=== PATIENT | female | born 1960 | race Caucasian/White ===

== ENCOUNTER 2017-02-05 09:51 | Emergency (ER) | payer MEDICARE, MEDICAID ==
[~2017-02-05] VITALS: Ht 160 cm; Wt 89.8 kg
[~2017-02-05 09:51] MED LIST: ALBUTEROL SULF0.5 ML IH; ALBUTEROL0.09 MG/Ac IH; ALBUTEROL2.5 MG/NEB IN; ALBUTEROL200 PUFFS/ IH; AMITRIPTYLINE 225 MG PO; AMLODIPINE10 MG PO; AMLODIPINE5 M1 PO; ASPIRIN CHILDRE81 M1 PO; AUGMENTIN1 TA3 PO; BACLOFEN 10MG T10 MG PO; BACTRIM DS 8001 TAB PO; BUSPIRONE HCL15 MG PO; CELEXA20 MG PO; CIPRO 500MG TA500 MG PO; CPAP; CRESTOR10 MG PO; CYMBALTA60 MG PO; DARVOCET-N 1001 EACH PO; DELTASONE5 MG PO; DEPAKOTE ER500 MG PO; DIAZEPAM5 M1 PO; DIAZEPAM5 MG PO; DIOVAN HCT 12.51 TAB PO; DULCOLAX5 MG PO; DULOXETINE 30MG30 MG PO; DULOXETINE HYDR60 MG PO; DUONEB 3 MG/3 ML3 ML IH; ELAVIL GENERIC10 MG PO; ELAVIL GENERIC25 MG PO; ENDOCET 650 MG-1 TAB PO; ETODOLAC400 MG PO; FLEET ENEMA 13135 ML RC; FLEXERIL10 MG PO; GABAPENTIN 400400 MG PO; GABAPENTIN 600600 MG PO; KCL 10% 2020 MEQ/15 PO; LASIX20 MG PO; LASIX40 MG PO; LIPITOR20 MG PO; LISINOPRIL10 MG PO; LORTAB 5/500 501 TAB PO; LORTAB 500 MG-11 TAB PO; LORTAB 500 MG-71 TAB PO; MACROBID 100MG100 MG PO; MEDROL 4MG. DOSE4 MG PO; METOPROLOL SUCC50 M1 PO; MILK OF MA400 MG/51 PO; MINOCYCLINE 10100 MG PO; NAPROSYN 500MG500 MG PO; NAPROXEN SODIU500 MG PO; NEURONTIN600 M1 PO; NEURONTIN600 MG PO; NEURONTIN800 MG PO; NORCO 325 MG-51 TAB PO; ONDANSETRON 4MG4 M1 PO; PERCOCET 10 MG1 EACH PO; PERCOCET 325 MG1 TA3 PO; PERCOCET 5/3251 EACH PO; PHENERGAN 12.12.5 M1 PO; PHENERGAN 25MG.25 M1 PO; PHENERGAN 25MG.25 MG PR; PREDNISONE 10MG10 MG PO; PREDNISONE 20MG20 MG PO; PREVACID 30MG C30 M1 PO; PROMETHAZINE25 M1 PO; PROVENTIL0.09 MG/AC IH; PYRIDIUM 200MG200 MG PO; Prilosec20 MG PO; RANITIDINE HCL300 M1 PO; RESTORIL 15MG C15 MG PO; RESTORIL15 MG PO; ROBAXIN 500 MG500 MG PO; SOMA350 MG PO; SULFAMETHOXAZOL1 TA6 PO; TEMAZEPAM30 MG PO; TESSALON PERLE100 MG PO; TESSALON PERLE200 MG PO; TRAMADOL 50MG T50 MG PO; TRAZADONE HYDR100 MG PO; TRAZODONE100 MG PO; VALIUM 10MG TAB10 MG PO; VICODIN 5/500 T1 TAB PO; VISTARIL25 MG PO; VISTARIL50 MG PO; ZANAFLEX4 MG PO
[2017-02-05] MEDS ORDERED: LINZESS145 MCG PO (10:07)
[2017-02-05] MEDS ORDERED: TEMAZEPAM30 MG PO (10:07)
--- OUTSIDE RECORDS SUMMARY | 2017-02-05 10:11 | External Medical Summary Rpt ---
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 CONTRAST MATRL RADIOLOGI 96465 [facility] EXAM [facility] CHEST 2 INC INC VIEWS FRONTAL&L ATERAL SIMPLE 64737 [facility] REPAIR 6 [facility] SCALP/NEC INC INC K/AX/ASHLEY T/TRUNK 2.5CM/< [place] [address] [facility] HEAD/BRAI 6 [facility] N W/O INC INC CONTRAST MATERIAL BLOOD 91089 [facility] COUNT [facility] COMPLETE INC INC AUTO&AUTO DIFRNTL WBC COMPREHEN 43984 [facility] SIVE 6 [facility] METABOLIC INC INC PANEL IAADI 91294 [facility] INFLUENZA 6 [facility] B VIRUS INC INC IAADI 85895 [facility] INFFLUENZ 6 [facility] A A VIRUS INC INC ECG 25126 [facility] ROUTINE 6 [facility] ECG INC INC W/LEAST 12 LDS TRCG ONLY W/O I&R IAADI 95137 [facility]AUTUMN P[facility] INFLUENZA 6 [facility] B VIRUS INC INC NATRIURET 15089 [facility] IC 6 [facility] PEPTIDE INC INC CREATINE 20492 [facility] KINASE 6 [facility] TOTAL INC INC IAADI 45005 [facility] INFFLUENZ 6 [facility] A A VIRUS INC INC SEDIMENTA 23851 [facility] P[facility] TIAUTUMN RATE 6 [facility] RBC INC INC NON-AUTOM ATED FIBRIN 56120 [facility] DGRADJ 6 [facility] PRODUCTS INC INC D-DIMER QUAL/SEMI LENO COMPREHEN 97312 [facility] SIVE 6 [facility] METABOLIC INC INC PANEL CREATINE 32926 [facility] KINASE MB 6 [facility] FRACTION INC INC ONLY THERAPEUT 29599 [facility] IC 6 [facility] INJECTION INC INC IV PUSH EACH NEW DRUG C-REACTIV 28675 [facility] E PROTEIN 6 [facility] INC INC BLOOD 09486 [facility] COUNT 6 [facility] COMPLETE INC INC AUTO&AUTO DIFRNTL WBC ECG 18016 [facility] HUMPHREYS ROUTINE [address] [facility] W/LEAST P 12 LDS I&[place] [address] [facility] TROPONIN 6 [facility] QUANTITAT INC INC [place] RADIOLOGI 22497 [facility] C 6 [facility] EXAMINATI INC [place] [address] [facility] INFUSION 6 [facility] THERAPY/P INC INC ROPHYLAXI S /DX 1ST TO 1 HR PRESSURIZ 60165 [facility] ED/NONPRE 6 [facility] SSURIZED INC INC INHALATIO N TREATMENT RADIOLOGI 60764 [facility] C EXAM 6 [facility] CHEST 2 INC INC VIEWS FRONTAL&L ATERAL BLOOD 23739 [facility] COUNT 6 [facility] COMPLETE INC INC AUTO&[place] [address] [facility] TROPONIN 6 [facility] QUANTITAT INC INC [place] THERAPEUT 28820 [facility] P[facility] IC 6 [facility] INJECTION INC INC IV PUSH EACH NEW DRUG NATRIURET 10498 [facility] IC 6 [facility] PEPTIDE INC INC CREATINE 04278 [facility] KINASE MB 6 [facility] FRACTION INC INC ONLY COMPREHEN 87979 [facility] P[facility] SIVE 6 [facility] METABOLIC INC INC PANEL FIBRIN 88287 [facility] P[facility] DGRADJ 6 [facility] PRODUCTS INC INC D-DIMER QUAL/SEMI LENO CREATINE 71684 [facility] KINASE 6 [facility] TOTAL INC INC THER 48706 [facility] PROPH/DX 6 [facility] NJX IV INC INC PUSH SINGLE/1S T SBST/DRUG INJECTION J2405 [facility]K 6 [facility] ONDANSETR INC INC ON HCL PER 1 MG ECG 21302 [facility] ROUTINE 6 [facility] ECG INC INC W/LEAST 12 LDS TRCG ONLY W/O I&R COMPUTER- 23762 [facility] AIDED 6 [facility] DETECTION INC INC SCREENING MAMMOGRAP HY SCREENING G0202 [facility]K 6 [facility] MAMMOGRAP INC INC [place] [address] [facility] ABDOMINAL 6 [facility] REAL INC INC TIME W/IMAGE LIMITED BLOOD 32236 [facility] COUNT 6 [facility] COMPLETE INC INC AUTO&AUTO DIFRNTL WBC COLLECTIO 97168 [facility] [place] VENOUS 6 [facility] BLOOD INC INC VENIPUNCT URE PRESSURIZ 26281 [facility] ED/NONPRE 6 [facility] SSURIZED INC INC INHALATIO N TREATMENT NONINVASI 00573 [facility] VE 6 [facility] EAR/PULSE INC INC OXIMETRY SINGLE DETER BASIC 85660 [facility] [place] METABOLIC 6 [facility] PANEL INC INC CALCIUM TOTAL TX PROC G0238 [facility]AUTUMN P[facility] IMPRV 6 [facility] RESP INC INC FUNCT NOT G0237 [facility] G0378 [facility] OBSERVATI 6 [facility] ON INC INC SERVICE PER HOUR INJECTION J2405 [facility] PECK 6 [facility] ONDANSETR INC INC ON HCL PER 1 MG ECG 46713 [facility] ROUTINE 6 [facility] ECG INC INC W/LEAST 12 LDS TRCG ONLY W/O I&R INJECTION J2405 [facility] P[facility]K 6 [facility] ONDANSETR INC INC ON HCL PER 1 MG THER 33300 [facility] PROPH/DX 6 [facility] NJX IV INC INC PUSH SINGLE/1S T SBST/DRUG HOSPITAL G0378 [facility] OBSERVATI 6 [facility] ON INC INC SERVICE PER HOUR COMPREHEN 60204 [facility] SIVE 6 [facility] METABOLIC INC INC PANEL INJECTION J0330 [facility] PECK 6 [facility] SUCCINYLC INC INC HOLINE CHLORIDE UP TO 20 MG URNLS DIP 96691 [facility]K 6 [facility] STICK/TAB INC INC LET REAGENT AUTO MICROSCOP Y INJECTION J2710 [facility]K 6 [facility] NEOSTIGMI INC INC NE METHYLSUL FATE UP TO 0.5 MG INITIAL 27135 [facility] GERRY SORIANO OBSERVATI 6 PHYSICIAN ON S GROUP CARE/DAY 30 MINUTES PRESSURIZ 59017 [facility] ED/NONPRE 6 [facility] SSURIZED INC INC INHALATIO N TREATMENT LOCM Q9967 [facility] 300-399 6 [facility] MG/ML INC INC IODINE CONCENTRA TION PER ML LAPAROSCO 52505 [facility] PIC 6 [facility] [address] [facility] ABDOMEN & 6 [facility] PELVIS INC INC W/CONTRAS T MATERIAL BLOOD 68235 [facility] COUNT 6 [facility] COMPLETE INC INC AUTO&AUTO DIFRNTL WBC LEVEL III 96020 [facility] SURG 6 [facility] PATHOLOGY INC INC GROSS&LOPEZ ROSCOPIC EXAM GONADOTRO 52821 [facility] PIN 6 [facility] CHORIONIC INC INC QUALITATI VE BLOOD 03710 [facility] COUNT 5 [facility] COMPLETE INC INC AUTO&AUTO DIFRNTL WBC SYPHILIS 39765 [facility] TEST 5 [facility] NON-TREPO INC INC NEMAL ANTIBODY QUAL COLLECTIO 43008 [facility] N VENOUS 5 [facility] [place] [address] [facility] THYROID 5 [facility] STIMULATI INC INC NG HORMONE TSH LIPID 19932 [facility] P[facility] PANEL 5 [facility] INC INC HEMOGLOBI 11929 [facility] N 5 [facility] GLYCOSYLA INC INC TERESSA A1C COMPREHEN 11845 [facility] P[facility] SIVE 5 [facility] METABOLIC INC INC PANEL CYANOCOBA 06805 [facility] SONG 5 [facility] VITAMIN INC INC B-12 THERAPEUT 75484 [facility] IC 5 [facility] PROPHYLAC INC INC TIC/DX INJECTION SUBQ/IM RADEX 05196 [facility] SPINE 5 [facility] CERVICAL INC INC 2 OR 3 VIEWS BASIC 70002 [facility] METABOLIC 5 [facility] PANEL INC INC CALCIUM TOTAL BASIC 12413 [facility] P[facility] METABOLIC 5 [facility] PANEL INC INC CALCIUM TOTAL COLLECTIO 82642 [facility] N VENOUS 5 [facility] BLOOD INC INC VENIPUNCT URE SCREENING G0202 [facility]K 5 [facility] MAMMOGRAP INC INC HY ELIZABETH INCL CAD WHEN PERFORMD COMPUTER- 55183 [facility] AIDED 5 [facility] DETECTION INC INC SCREENING MAMMOGRAP HY URNLS DIP 15652 [facility]K 5 [facility] STICK/TAB INC [place] [address] [facility] INFUSION 5 [facility] THERAPY/P INC INC ROPHYLAXI S /DX 1ST TO 1 HR RADEX 76982 [facility] P[facility] SPINE 5 [facility] LUMBOSACR INC INC AL MINIMUM 4 VIEWS RADIOLOGI 80876 [facility] C 5 [facility] EXAMINATI INC INC ON PELVIS 1/2 VIEWS RADIOLOGI 19839 [facility] C 5 [facility] EXAMINATI INC INC ON FEMUR 2 VIEWS INJECTION J2405 [facility]K 5 [facility] ONDANSETR INC INC ON HCL PER 1 MG INJECTION J1040 [facility]K 5 [facility] METHYLPRE INC INC DNISOLONE ACETATE 80 MG THERAPEUT 60187 [facility] IC 5 [facility] PROPHYLAC INC INC TIC/DX INJECTION SUBQ/IM RADIOLOGI 75297 [facility] [place] EXAM 5 [facility] KNEE INC INC COMPLETE 4/MORE VIEWS RADEX 34133 [facility] SPINE 5 [facility] CERVICAL INC INC 4 OR 5 VIEWS NONINVASI 26464 [facility] VE 5 [facility] EAR/PULSE INC INC OXIMETRY SINGLE DETER PRESSURIZ 34559 [facility] ED/NONPRE 5 [facility] SSURIZED INC INC INHALATIO N TREATMENT HOSPITAL G0378 [facility] OBSERVATI 5 [facility] ON INC INC SERVICE PER HOUR HOSPITAL G0378 [facility] P[facility] OBSERVATI 5 [facility] ON INC INC SERVICE PER HOUR BASIC 59781 [facility] METABOLIC 5 [facility] PANEL INC INC CALCIUM TOTAL INJECTION J0456 [facility] PECK 5 [facility] AZITHROMY INC INC FRANCHESCA 500 MG PRESSURIZ 12263 [facility] ED/NONPRE 5 [facility] SSURIZED INC INC INHALATIO N TREATMENT NONINVASI 17626 [facility]K VE 5 [facility] EAR/PULSE INC INC OXIMETRY SINGLE DETER CUL BACT 26061 [facility] XCPT 5 [facility] URINE INC INC BLOOD/STO OL AEROBIC ISOL COLLECTIO 08610 [facility] [place] VENOUS 5 [facility] BLOOD INC INC VENIPUNCT URE SMR PRIM 59771 [facility] SRC 5 [facility] GRAM/GIEM INC INC SA STAIN BCT FUNGI/LUIS L BLOOD 76713 [facility] COUNT 5 [facility] COMPLETE INC INC AUTO&AUTO DIFRNTL WBC BLOOD 06702 [facility] COUNT 5 [facility] COMPLETE INC INC AUTO&AUTO DIFRNTL WBC ECG 90379 [facility] HUMPHREYS ROUTINE 5 [facility] W/LEAST P 12 LDS I&R ONLY CULTURE 86690 [facility] PECK BACTERIAL 5 [facility] BLOOD INC INC AEROBIC W/ID ISOLATES COLLECTIO 13729 [facility] [place] VENOUS 5 [facility] [place] [address] [facility] PECK TROPONIN 5 [facility] [address] [facility] PCEK INFUSION 5 [facility] THERAPY/P INC INC ROPHYLAXI S /DX 1ST TO 1 HR THERAPEUT 37922 [facility] PECK IC 5 [facility] INJECTION INC INC IV PUSH EACH NEW DRUG PRESSURIZ 24776 [facility] ED/NONPRE 5 [facility] SSURIZED INC INC INHALATIO N TREATMENT RADIOLOGI 18890 [facility] [place] EXAM 5 [facility] CHEST 2 INC INC VIEWS FRONTAL&L ATERAL INJECTION J0456 [facility]K 5 [facility] AZITHROMY INC INC FRANCHESCA 500 MG CREATINE 44074 [facility] KINASE 5 [facility] TOTAL INC INC ECG 28031 [facility] ROUTINE 5 [facility] ECG INC INC W/LEAST 12 LDS TRCG ONLY W/[place] I&[place] [address] [facility] INFUSION 5 [facility] THER INC INC PROPH ADDL SEQUENTIA L TO 1 HR [facility]OSPITAL G0378 [facility] OBSERVATI 5 [facility] ON INC INC SERVICE PER HOUR COMPREHEN 14123 [facility] SIVE 5 [facility] METABOLIC INC INC PANEL INJECTION J2405 [facility] PECK 5 [facility] ONDANSETR INC INC ON HCL PER 1 MG CREATINE 39765 [facility] KINASE MB 5 [facility] FRACTION INC INC ONLY APPL 59107 [facility] MODALITY 4 [facility] 1/> AREAS INC INC ELEC STIMJ EA 15 MIN URNLS DIP 91442 [facility]K 3 [facility] STICK/TAB INC INC LET REAGENT AUTO MICROSCOP Y THERAPEUT 00167 [facility] IC 3 [facility] PROPHYLAC INC INC TIC/DX INJECTION SUBQ/IM HEMOGLOBI 99045 [facility] N 3 [facility] GLYCOSYLA INC INC TERESSA A1C 3D 01495 [facility] RENDERING 3 [facility] W/INTERP INC INC & POSTPROCE SS SUPERVISI ON MRI 20605 [facility] SPINAL 3 [facility] CANAL INC INC LUMBAR W/O CONTRAST MATERIAL COLLECTIO 29359 [facility] [place] VENOUS 3 [facility] BLOOD INC INC VENIPUNCT URE ECHO 32312 [facility] TTHRC R-T 3 2D W/WO CONSULTIN M-MODE G SRV REST&STRS CONT ECG COLLECTIO 89851 [facility] [place] VENOUS 3 [facility] VENIPUNCT URE FIBRIN 26135 CHICA COTO DGRADJ 3 [facility] D-DIMER QUANTITAT [place] ECHO 21091 [facility] P[facility]K TTHRC R-T 3 [facility] 2D INC INC W/WOM-MOD E COMPL SPEC&COLR D SLEEP STD 02574 [facility] VNTJ 3 [facility] ECG/HRT RATE&O2 ATTN RADIOLOGI 35853 [facility] EX[facility] [address] VIEWS FRONTAL&L ATERAL XTRNL ECG 72543 [facility] BRET & 48 HR 3 MD RECORDING CONSULTIN G SRV ECG 82488 [facility] ROUTINE 3 MD ECG CONSULTIN W/LEAST G SRV 12 LDS W/I&R CYSTO 24876 [facility] GOME[facility] CALIBRATI 3 [place] [facility] ON DILAT ADULT & URTL PED STRIX/LORNA NOSIS DILATION 586 [facility] PECK OF 3 [facility] URETHRA INC INC INJECTION J2405 [facility]ECK 3 [facility] ONDANSETR INC INC ON HCL PER 1 MG DILAT 56902 ICSCO PECK FEMALE 3 [facility] URETHRA INC INC GENERAL/C NDJ SPINAL ANES CYSTOURET 07449 [facility] GOME[facility] HROSCOPY 3 [place] [facility] W/DIL ADULT & [place] [address] [facility] P[facility]K INFUSION 3 [facility] THERAPY INC INC PROPHYLAX IS/DX EA HOUR THERAPEUT 34361 [facility] PECK IC 3 [facility] INJECTION INC [place] [address] [facility] P[facility]K INFUSION 3 [facility] THERAPY/P INC INC ROPHYLAXI S /DX 1ST TO 1 HR COLLECTIO 42483 [facility]K N VENOUS 3 [facility] BLOOD INC INC VENIPUNCT URE BLOOD 15429 [facility] COUNT 3 [facility] COMPLETE INC INC AUTO&AUTO DIFRNTL WBC URNLS DIP 51799 [facility] PECK 3 [facility] STICK/TAB INC INC LET REAGENT AUTO MICROSCOP Y COMPREHEN 41030 [facility] SIVE 3 [facility] METABOLIC INC INC PANEL ECG 42754 [facility] ROUTINE 3 [facility] ECG INC INC W/LEAST 12 LDS TRCG ONLY W/O I&R THERAPEUT 76323 [facility]ICA COTO IC 3 [facility] PROPHYLAC [facility] TIC/DX INJECTION SUBQ/[place] [address] CHICA COTO LIPASE 3 [facility] COMPREHEN 19377 CHICA COTO SIVE 3 [facility] PANEL URNLS DIP 83466 CHICA [place] 3 [facility] STICK/TAB [facility] [place] [address] CHICA COTO ABDOMEN & [address] [place] [address] W/CONTRAS T MATERIAL BLOOD 98228 CHICA COTO COUNT 3 [facility] AUTO&[place] [address] CHICA COTO INFUSION 3 [facility] THERAPY/P [facility] ROPHYLAXI S /DX 1ST TO 1 HR THERAPEUT 62856 CHICA COTO IC 3 [facility] IV PUSH EACH NEW DRUG CULTURE 61471 CHICA COTO BACTERIAL [address] [place] [address] QUANTTATI VE COLONY COUNT URINE SMR PRIM 53318 [facility]ICA COTO SRC WET 3 [facility] NFCT AGT TISS ADI 68500 CHICA COTO SLIDE 3 [facility] SKN/HR/NL S FNGI/ECTO PARASIT RADIOLOGI 16121 [facility] COTO C EXAM 3 [facility]ST [address] [place] [address] VIEWS FRONTAL&L ATERAL PRESSURIZ 56339 [facility] COTO ED/NONPRE 3 [facility] INHALAT[facility] N TREATMENT NEEDLE 58587 FEMI JENNIFER EMG EA 3 JAL EXTREMTY NEUROSCIE W/PARASPI NCES CENT NL AREA COMPLETE NERVE 16239 FEMI HILLIO 3 JAL N STUDIES NEUROSCIE 7-8 [facility] CENT STUDIES STANDARD K0001 FELICIA GOREI 3 HOME HOME R MEDICAL MEDICAL EQUIPME EQUIPME FILTER A7039 FELICIA DUARTE NON 2 HOME HOME DISPBL MEDICAL MEDICAL USED EQUIPME EQUIPME W/POS ARWAY PRESS DEVICE FULL FACE A7030 FELICIA DUARTE MASK 2 HOME HOME USED MEDICAL MEDICAL W/POS EQUIPME EQUIPME ARWAY PRESS DEVICE EA THER 44478 [facility] PROPH/DX 2 [facility] NJX IV INC INC PUSH SINGLE/1S T SBST/DRUG 3D 59297 [facility] RENDERING 2 [facility] W/INTERP INC INC & [place] 3D 79074 [facility] RENDERING 2 [facility] INC INC W/INTERP& [place] [address] [facility] HEAD/BRAI 2 [facility] N W/[place] [address] [facility] CERVICAL 2 [facility] SPINE W/O INC INC CONTRAST MATERIAL MOE 85312 [facility] POST-VOID 2 [facility] RESIDUAL PED URINE&/BL ADDER CAP OTHER 5732 [place] CYSTOSCOP 2 [facility] OTHER 5979 [place] REPAIR OF 2 [facility] INCONTINE NYE ECG 32364 [place] ROUTINE 2 [facility] W/LEAST 12 LDS TRCG ONLY W/O I&R PRESSURIZ 20804 [place] ED/NONPRE 2 [facility] INHALATIO N TREATMENT SLING 51035 [place] OPERATION 2 [facility] INCONTINE NYE RADIOLOGI 34012 [facility] C 2 [facility] EXAMINATI INC INC ON FOOT 2 VIEWS RADEX 05428 [facility] CALCANEUS 2 [facility] MINIMUM INC INC 2 VIEWS FLUOR 71164 [facility] NEEDLE/CA 2 N N TH [facility] SPINE/PAR HOSPITA HOSPITA ASPINAL DX/THER ADDON NJX 63488 [facility] DX/THER 2 N N SBST [facility] EPIDURAL/ HOSPITA HOSPITA SUBARACH LUMBAR/SA CRAL INJECTION J2250 [facility] 2 N N MIDAZOLAM [facility] HCL PER HOSPITA HOSPITA 1 MG INJECTION 0392 [facility] OF OTHER 2 N N AGENT [facility] INTO HOSPITA HOSPITA SPINAL CANAL INJECTION 9923 [facility] OF 2 N N STEROID [facility] HOSPITA INJECTION J2001 [facility] 2 N N LIDOCAINE [facility] HCL [facility]ITA HOSPITA INTRAVENO US INFUS 10 MG INJECTION J1100 [facility] 2 N N DEXAMETHO [facility] SONE [facility] HOSPITA SODIUM PHOSPHATE 1 MG RADEX 87829 [facility] MAXINEAUTUMN SHOULDER 2 [facility] MINIMUM 2 VIEWS RADEX 56865 [facility] 2 [facility] [address] [place] [address] CHICA COTO HEAD/BRAI 2 [facility] CONTRAST MATERIAL RADIOLOGI 70100 [facility] C 2 [facility] EXAMINATI INC INC ON KNEE 3 VIEWS RADEX 18373 CH[facility] GOODMANAUTUM[facility] FOOT 2 [facility] MINIMUM 3 VIEWS THERAPEUT 01147 NAEEMILA COTO IC 2 [facility] TIC/DX INJECTION SUBQ/IM THERAPEUT 49233 [facility] IC 2 [facility] PROPHYLAC INC INC TIC/DX INJECTION SUBQ/IM TUBING A7037 FELICIA DUARTE USED WITH 2 HOME HOME POSITIVE MEDICAL MEDICAL AIRWAY EQUIPME EQUIPME PRESSURE DEVICE HEADGEAR A7035 FELICIA DUARTE USED 2 HOME HOME W/POSITIV MEDICAL MEDICAL E AIRWAY EQUIPME EQUIPME PRESSURE DEVICE FULL FACE A7030 FELICIA DUARTE MASK 2 HOME HOME USED MEDICAL MEDICAL W/POS EQUIPME EQUIPME ARWAY PRESS DEVICE EA FILTER A7038 FELICIA DUARTE DISPBL 2 HOME HOME USED MEDICAL MEDICAL W/POS EQUIPME EQUIPME ARWAY PRESSURE DEVICE RADEX 66248 [facility] ELBOW 2 [facility] INC INC MINIMUM 3 VIEWS PRESSURIZ 98069 [facility] ED/NONPRE 2 Y Y SSURIZED [facility] INHALATIO N TREATMENT PPSV23 85092 [facility] VACCINE 2 2 Y Y YRS OR HOSPITAL HOSPITAL OLDER FOR SUBQ/IM USE LAPS SURG 51734 [facility] 2 Y Y ESOPG/GST [facility] R FUNDOPLAS TY INJECTION J0330 [facility] 2 Y Y SUCCINYLC [facility] HOLINE CHLORIDE UP TO 20 MG INJECTION [id number] [facility] FENTANYL 2 Y Y CITRATE [facility] 0.1 MG INFUSION J7030 [facility] NORMAL 2 Y Y SALINE [facility] SOLUTION 1000 CC INTRDUCR/ [id number] [facility] SHEATH 2 Y Y NOT GUID [facility] INTRACARD EP NON-LASR RINGERS J7120 [facility] LACTATE 2 Y Y INFUSION [facility] UP TO 1000 CC INJECTION J1170 [facility] 2 Y Y HYDROMORP [facility] OFELIA UP TO 4 MG INJECTION J1644 [facility] HEPARIN 2 Y Y SODIUM [facility] PER 1000 UNITS INJECTION J2550 [facility] 2 Y Y PROMETHAZ [facility] INE HCL UP TO 50 MG LAP PROC 4467 [facility] CREAT 2 Y Y ESOPHAGOG [facility] ASTR SPHNCTRIC COMPETNCE TUBING A7037 FELICIA DUARTE USED WITH 2 HOME HOME POSITIVE MEDICAL MEDICAL AIRWAY EQUIPME EQUIPME PRESSURE DEVICE FULL FACE A7030 FELICIA DUARTE MASK 2 HOME HOME USED MEDICAL MEDICAL W/POS EQUIPME EQUIPME ARWAY PRESS DEVICE EA NEBULIZER E0570 FELICIA DUARTE WITH 2 HOME HOME COMPRESSO MEDICAL MEDICAL R EQUIPME EQUIPME WALKING L4386 FELICIA DUARTE BOOT 2 HOME HOME NON-PNEUM MEDICAL MEDICAL ATIC EQUIPME EQUIPME PREFAB CUSTOM FIT CONTINUOU E0601 FELICIA DUARTE S 2 HOME HOME POSITIVE MEDICAL MEDICAL AIRWAY EQUIPME EQUIPME PRESSURE DEVICE CT LOWER 03504 [facility] EXTREMITY [facility] W/O INC INC CONTRAST MATERIAL 3D 27250 [facility] RENDERING 2 [facility] INC INC W/INTERP& [place] [address] [facility] THYROXINE 2 [facility] [place] [address] [facility] BLOOD/URI 2 [facility] C ACID INC INC RHEUMATOI 24428 [facility] D FACTOR 2 [facility] [address] [facility] P[facility] THYROID 2 [facility] STIMULATI INC INC NG HORMONE TSH COLLECTIO 40347 [facility] N VENOUS 2 [facility] BLOOD INC INC VENIPUNCT URE BLOOD 35585 [facility] COUNT 2 [facility] COMPLETE INC INC AUTO&AUTO DIFRNTL WBC CYANOCOBA 78593 [facility] SONG 2 [facility] VITAMIN INC INC B-12 PROTEIN 54525 [facility] ELECTROPH 2 [facility] ORETIC INC INC FRACTJ&[place] [address] [facility] THIAMINE- 2 [facility] VITAMIN INC INC B-1 HEMOGLOBI 14248 [facility] P[facility] N 2 [facility] GLYCOSYLA INC INC TERESSA A1C COMPREHEN 61827 [facility] SIVE 2 [facility] METABOLIC INC INC PANEL NEBULIZER E0570 FELICIA DUARTE WITH 2 HOME HOME COMPRESSO MEDICAL MEDICAL R EQUIPME EQUIPME CUL 76347 [facility] PRSMPTV 2 [facility] PTHGNC INC [place] [address] [facility]FUSION [facility] THERAPY/P INC INC ROPHYLAXI S /DX 1ST TO 1 [place] [address] [facility] INFUSION 2 [facility] THERAPY INC INC PROPHYLAX IS/DX EA HOUR CONTINUOU E0601 FELICIA DUARTE S 2 HOME HOME POSITIVE MEDICAL MEDICAL AIRWAY EQUIPME EQUIPME PRESSURE DEVICE NEBULIZER E0570 FELICIA DUARTE WITH 2 HOME HOME COMPRESSO MEDICAL MEDICAL R EQUIPME EQUIPME CONTINUOU E0601 FELICIA DUARTE S 2 HOME HOME POSITIVE MEDICAL MEDICAL AIRWAY EQUIPME EQUIPME PRESSURE DEVICE NEBULIZER E0570 FELICIA DUARTE WITH 2 HOME HOME COMPRESSO MEDICAL MEDICAL R EQUIPME EQUIPME PWR WC K0823 THE THE GRP 2 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Junko Tada STORE STORE CHAIR PT TO &=300 LBS CONTINUOU E0601 FELICIA DUARTE S 1 HOME HOME POSITIVE MEDICAL MEDICAL AIRWAY EQUIPME EQUIPME PRESSURE DEVICE CONTINUOU E0601 FELICIA DUARTE S 1 HOME HOME POSITIVE MEDICAL MEDICAL AIRWAY EQUIPME EQUIPME PRESSURE DEVICE LOCM Q9967 [facility] COTO [phone] [facility] IODINE CONCENTRA TION PER ML CT THORAX 71101 BOJOSHON MAXINEON 1 [facility] T MATERIAL NEBULIZER E0570 FELICIA DUARTE WITH 1 HOME HOME COMPRESSO MEDICAL MEDICAL R EQUIPME EQUIPME SLEEP STD 50329 [facility] COTO REC VNTJ 1 [facility] ECG/HRT RATE&O2 ATTN CONTINUOU E0601 FELICIA DUARTE S 1 HOME HOME POSITIVE MEDICAL MEDICAL AIRWAY EQUIPME EQUIPME PRESSURE DEVICE WALKER E0143 FELICIA DUARTE FOLDING 1 HOME HOME WHEELED MEDICAL MEDICAL ADJUSTABL EQUIPME EQUIPME E/FIXED HEIGHT PHYSICAL 97134 [facility] THERAPY 1 [facility] EVALUATIO INC INC N NEBULIZER E0570 FELICIA DUARTE WITH 1 HOME HOME COMPRESSO MEDICAL MEDICAL R EQUIPME EQUIPME POLYSOM 88641 [facility] GOODMANON 6/>YRS 1 [facility] W/CPAP 4/> ADDL GAY ATTND TUBING A7037 FELICIA DUARTE USED WITH 1 HOME HOME POSITIVE MEDICAL MEDICAL AIRWAY EQUIPME EQUIPME PRESSURE DEVICE HEADGEAR A7035 FELICIA DUARTE USED 1 HOME HOME W/POSITIV MEDICAL MEDICAL E AIRWAY EQUIPME EQUIPME PRESSURE DEVICE FULL FACE A7030 FELICIANAYANA DUARTE MASK 1 HOME HOME USED MEDICAL MEDICAL W/POS EQUIPME EQUIPME ARWAY PRESS DEVICE EA FILTER A7038 FELICIA FELICIA DISPBL 1 HOME HOME USED MEDICAL MEDICAL W/POS EQUIPME EQUIPME ARWAY PRESSURE DEVICE FILTER A7039 FELICIANAYANA DUARTE NON 1 HOME HOME DISPBL MEDICAL MEDICAL USED EQUIPME EQUIPME W/POS ARWAY PRESS DEVICE CONTINUOU E0601 FELICIANAYANA DUARTE S 1 HOME HOME POSITIVE MEDICAL MEDICAL AIRWAY EQUIPME EQUIPME PRESSURE DEVICE HUMDIFIR E0562 FELICIA DUARTE HEATED 1 HOME HOME USED MEDICAL MEDICAL W/POS EQUIPME EQUIPME ARWAY PRESSURE DEVICE POLYSOM 95618 CHICA COTO 6/>YRS 1 [facility] SLEEP 4/> HOSPITAL HOSPITAL ADDL GAY ATTND ECG 40518 [facility] ROUTINE 1 [facility] ECG INC INC W/LEAST 12 LDS TRCG ONLY W/O I&R APPLICATI 09066 [facility] ON SHORT 0 [facility] ARM INC INC SPLINT FOREARM-H AND STATIC MRI 04940 February SPINAL 9 MEDICAL CANAL SERV CERVICAL FOUNDATIO W/O CONTRAST MATRL NDL EMG 1 07640 [place] FEE, XTR W/WO 9 MEDICAL ISMAEL B RELATED SERV PARASPINA FOUNDATIO L AREAS NRV CNDJ 17650 [facility] AMPLT&LAT [address] [facility] NRV MOTOR W/F-WAVE STD NRV CNDJ 03982 [facility]IVERS AMPLITUDE 9 Y Y & [facility] LATENCY EACH NERVE SENSORY WRIST L3807 [facility] HAND 9 FINGR ORTHOS W/O JNT PREFAB CSTM FIT RADEX 94999 [place] AYANA, ABDOMEN 1 9 MEDICAL CHUCK IMAGING ANTEROPOS ASSOCIATE TERIOR S VIEW CT UPPER 99007 CONTRERAS HAWK, EXTREMITY 9 MEDICAL VAMSHI P W/O IMAGING CONTRAST ASSOCIATE MATERIAL S 3D 58156 CONTRERAS KENN, RENDERING 9 MEDICAL VAMSHI P IMAGING W/INTERP& ASSOCIATE POSTPROC S DIFF WORK STATION WRIST L3908 ALFRED DAWKINSO HAND 9 REDD RAINEY MD ORTHOSIS PSC PSC EXT CONTROL COCK-UP PREFAB RADEX 53271 [facility] HUMERUS 9 [facility] MINIMUM 2 INC INC VIEWS RADEX 21911 CONTRERAS VELASQUEZUTCHER, FOREARM 2 9 MEDICAL CHUCK VIEWS IMAGING ASSOCIATE S RADEX 19887 [facility] WRIST 9 [facility] COMPLETE INC INC MINIMUM 3 VIEWS RADEX 33285 CONTRERAS AYANA, ELBOW 9 MEDICAL CHUCK COMPLETE IMAGING MINIMUM 3 ASSOCIATE VIEWS S RADEX 19469 [facility] HAND 9 [facility] MINIMUM 3 INC INC VIEWS RADEX 10496 [facility] SHOULDER 9 [facility] COMPLETE INC INC MINIMUM 2 VIEWS BLOOD 67997 [facility] COUNT 8 [facility] COMPLETE INC INC AUTO&AUTO DIFRNTL WBC RADIOLOGI 36868 Justen ALMANZA EXAM 8 MEDICAL CHUCK CHEST 2 IMAGING VIEWS ASSOCIATE FRONTAL&L S ATERAL BASIC 06900 [facility] METABOLIC 8 [facility] PANEL INC INC CALCIUM TOTAL CT PELVIS [address] [facility], W/O 8 MEDICAL CHUCK CONTRAST IMAGING MATERIAL ASSOCIATE S RADEX ABD 56619 [facility] COMPL 8 MEDICAL CHUCK AQT ABD IMAGING W/S/E/D ASSOCIATE VIEWS [address] [place] [address] [facility] PI[facility]A, ABDOMEN 8 MEDICAL CHUCK W/O IMAGING CONTRAST ASSOCIATE MATERIAL S 3D 19217 [facility] PIÑA, RENDERING 8 MEDICAL CHUCK IMAGING W/INTERP& ASSOCIATE POSTPROC S DIFF WORK STATION RADIOLOGI 57209 CONTRERAS PIÑA C 8 MEDICAL CHUCK EXAMINATI IMAGING ON PELVIS ASSOCIATE 1/2 S VIEWS RADEX 90145 CONTRERAS PIÑA, FOOT 8 MEDICAL CHUCK COMPLETE IMAGING MINIMUM 3 ASSOCIATE VIEWS S RADEX 11714 CONTRERAS PIÑA, SPINE 8 MEDICAL CHUCK LUMBOSACR IMAGING AL ASSOCIATE MINIMUM [address] PELVIS 07442 CONTRERAS VELASQUEZUTCHER, 8 MEDICAL CHUCK W/CONTR[place] [address] CONTRERAS VELASQUEZUTCHER, ABDOMEN 8 MEDICAL CHUCK W/CONTRAS IMAGING T ASSOCIATE MATERIAL S 3D 48106 CONTRERAS PIÑA, RENDERING 8 MEDICAL CHUCK IMAGING W/INTERP& ASSOCIATE POSTPROC S DIFF WORK STATION HEPATBL 01844 CONTRERAS HAWK DUX SYS 8 MEDICAL VAMSHI P IMG IMAGING GLBLDR ASSOCIATE S RADEX ABD 95314 CONTRERAS PIÑA, COMPL 8 MEDICAL CHUCK AQT ABD IMAGING W/S/E/D ASSOCIATE VIEWS [address] [place] [address] CONTRERAS PIÑA, ABDOMINAL 8 MEDICAL CHUCK REAL IMAGING TIME ASSOCIATE W/IMAGE S LIMITED Encounters Encounter Start End Date Code Location Performer Type Date [facility] [place] [address] 7 N OUTPATIEN COMMUNTIY T HOSPITA EMERGENCY 63315 [facility] 6 6 [facility] DEPARTMEN INC T VISIT MODERATE SEVERITY HOSPITAL [facility] - 6 6 [facility] OUTPATIEN [facility] T EMERGENCY 88526 [facility] 6 6 [facility] DEPARTMEN INC T VISIT HIGH/URGE NT SEVERITY HOSPITAL [facility] - 6 6 [facility] OUTPATIEN INC T HOSPITAL [facility] 6 6 [facility] OUTPATIEN INC T EMERGENCY 17256 [facility] 6 6 [facility] DEPARTMEN INC T VISIT LIMITED/M INOR PROB EMERGENCY 92832 [facility] 6 6 [facility] DEPARTMEN INC T VISIT MODERATE SEVERITY HOSPITAL [facility] - 6 6 [facility] INC T [facility]PITAL [facility] - 6 6 [facility] INC T [facility]OSPITAL [facility] - 6 6 [facility] OUTPATIEN INC T EMERGENCY 89853 [facility] 6 6 [facility] DEPARTMEN INC T VISIT HIGH/URGE NT SEVERITY HOSPITAL [facility] - 6 6 [facility] OUTPATIEN INC T OFFICE 08864 [facility] 6 6 [facility] VISIT INTERNAL 25 MED MINUTES OFFICE 01538 [facility] [place] 5 5 [place] T VISIT ORTHOPAED [facility] MINUTES OFFICE 36751 [facility] 5 5 [facility] NEW 45 INTERNAL MINUTES [facility] CISCO - 5 5 [facility]EN [facility] T OFFICE 16673 [facility] 5 5 [place] T VISIT ORTHOPAED [facility] MINUTES OFFICE 02001 [facility] 5 5 [place] T VISIT ORTHOPAED [facility] MINUTES EMERGENCY 59662 [facility] 5 5 [facility] DEPARTMEN INC T VISIT LOW/MODER SEVERITY HOSPITAL [facility] - 5 5 [facility] OUTPATIEN INC T HOSPITAL [facility] - 5 5 [facility] OUTPATIEN INC T HOSPITAL [facility] - 5 5 [facility] OUTPATIEN INC T HOSPITAL [facility] - 5 5 [facility] OUTPATIEN INC T HOSPITAL [facility] - 5 5 [facility] OUTPATIEN INC T EMERGENCY 46903 [facility] 5 5 [facility] DEPARTMEN INC T VISIT HIGH/URGE NT SEVERITY EMERGENCY 72095 [facility] 5 5 [facility] DEPARTMEN INC T VISIT MODERATE SEVERITY HOSPITAL [facility] - 5 5 [facility] OUTPATIEN INC T [facility]OSPITAL [facility] - 5 5 [facility]EN INC [facility]PITAL [facility] - 5 5 [facility] OUTPATIEN INC T EMERGENCY 85834 [facility] DEPT 5 5 [facility] VISIT INC HIGH SEVERITY& THREAT FUNCJ OFFICE 29030 KARYN CHRISTIANSENX BUX ANJ OUTPATIEN 5 5 MD T VISIT 10 MINUTES OFFICE 16103 KARYN BUX BUX ANJ OUTPATIEN 5 5 MD T NEW 20 MINUTES HOSPITAL [facility] - 4 4 [facility] OUTPATIEN INC Emergency TAYLER Humphreys MD (ER) 3 22:20 3 23:[address] [facility]ISCO - 3 3 [facility] OUTPATIEN INC EMERGENCY 75765 [facility] 3 3 [facility] DEPARTMEN INC T VISIT MODERATE SEVERITY HOSPITAL [facility] - 3 3 [facility] OUTPATIEN INC OFFICE 43875 [facility]RET OUTPATIEN 3 3 MD T VISIT CONSULTIN 25 G SRV MINUTES Inpatient MANISHA Huang MD (IN) 3 13:13 3 11:10 [facility] CHICA - 3 3 [facility]PITAL [facility]CO - 3 3 [facility] OUTPATIEN INC T Emergency TAYLER DOMINGO MD (ER) 3 17:39 3 19:17 [facility] OFFICE 21495 [facility] M[facility]ISON BRET OUTPATIEN 3 3 T VISIT CONSULTIN 25 G SRV MINUTES HOSPITAL [facility] - 3 3 [facility] [place] - 3 3 [facility] [place] T OFFICE 22826 [facility] OUTPATIEN 3 3 [facility] T [facility]ISIT [facility]ULT & 15 PED MINUTES HOSPITAL [facility] - 3 3 [facility] 3 3 [facility] OFF[facility] 83779 [facility] OUTPATI[facility] 3 3 [facility] T VISIT ADULT & 25 PED MINUTES OFFICE 95916 [facility] OUTPATIEN 3 3 [facility] T [facility]ISIT ADULT & 15 PED MINUTES [facility] EM[facility]GENCY 34201 [facility] 3 [facility] HIGH SEVERITY& THREAT FUN OFFICE 24951 [facility] OUT[facility] 3 3 JAL T VISIT NEUROSCIE 25 NCES CENT MINUTES OFFICE 61000 [facility] OUT[facility] 3 3 JAL T NEW 45 NEUROSCIE MINUTES NCES CENT EMERGENCY 15597 [facility] 2 2 [facility] T VISIT LOW/MODER SEVERITY HOSPITAL [facility] - 2 2 [facility] 89880 [facility] 2 2 [facility] T VISIT ASSOCIATE ASSOCIATE 15 S PS S PS MINUTES [facility]OSP[facility] [place] - 2 2 [facility]PITAL CISCO - 2 2 [facility] 02523 [facility] 2 2 [facility] T VISIT ASSOCIATE ASSOCIATE 15 S PS S PS MINUTES OFFICE 53420 [facility] OUTPATIEN 2 2 [facility] T NEW 45 ASSOCIATE ASSOCIATE MINUTES S PS S PS OFFICE 93180 [facility] 2 2 MD T VISIT CONSULTIN 25 G SRV MINUTES EMERGENCY 94188 [place] 2 2 [facility] T VISIT HIGH/URGE NT SEVERITY HOSPITAL [place] - 2 2 [facility] EMERGENCY 71198 [place] 2 2 [facility] T VISIT MODERATE SEVERITY EMERGENCY 70270 [facility] 2 2 [facility] T VISIT LOW/MODER SEVERITY [facility]OSPITAL [place] - 2 2 [facility] H[facility]PITAL CISCO - 2 2 [facility] EMERGENCY 20765 [facility] 2 2 [facility] T VISIT MODERATE [facility]VERITY HOSPITAL [facility]ISCO - 2 2 [facility] UNIVERSIT - 2 2 [facility] T OFF[facility] 65481 [place] ZUÑIGA OUTPATI 2 2 MEDICAL BOGDAN T NEW 30 SERV MINUTES FOUNDATIO OFFICE [address] [facility] 2 2 MEDICAL T NEW 30 SERV MINUTES [facility] CISCO - 2 2 [facility]CO - 2 2 [facility] [place] [facility] 1 1 [facility] [place] - 1 1 [facility] CIS[facility] - 1 1 [facility] [place] - 1 1 [facility] [place] - 1 1 [facility] CISCO - 1 1 [facility] OUTPATIEN INC T OFFICE 89347 ELIANA NICOLE OUTPATIEN 0 0 MEDICAL T VISIT SERV 25 FOUNDATIO MINUTES HOSPITAL [facility] - 0 0 [facility] OUTPATIEN INC T OFFICE 41739 ELIANA NICOLE OUTPATIEN 0 0 MEDICAL T NEW 45 SERV MINUTES [facility] UNIVERSIT - 9 9 Y [facility] T HOSPITAL UNIVERSIT - 9 9 Y [facility] T OFFICE 04270 ELIANA SHAWN OUTPATICLAUDIA 9 9 MEDICAL BRITNEY T NEW 30 SERV MINUTES FOUNDATIO OFFICE 59455 [facility] 9 9 [place] MARVIN Campuzano ION ORTHOPAED NEW/ESTAB [facility] PATIENT 60 MIN [facility] CISCO - 9 9 [facility] OUTPATIEN INC T EMERGENCY 53760 [facility] 9 9 [facility] DEPARTMEN INC T VISIT LOW/MODER SEVERITY EMERGENCY 11663 BRAYDEN VALENTINO, 9 9 EMERGENCY [facility] SERVICES T VISIT HIGH/URGE ASSOCIATE NT S SEVERITY HOSPITAL [facility] - 9 9 [facility] OUTPATIEN INC T OFFICE 05715 CORDELIA STOREY OUTPATIEN 9 9 VERONICA MARTIN T VISIT 25 MINUTES OFFICE 21861 LOLI ENNIS OUTPATIEN 9 9 ALFRED SIMON T NEW 45 MINUTES HOSPITAL [facility] - 9 9 [facility] OUTPATIEN INC T OFFICE 64302 ARIADNE RON OUTPATIEN 9 9 LAWRENCE Bae T NEW 30 MINUTES OFFICE 71189 LIZY FERRERA 9 9 [facility] SEDRICK Collins T VISIT ORTHOPAED 15 IC CTR MINUTES PSC EMERGENCY 13180 [facility] 9 9 [facility] DEPARTMEN INC T VISIT LIMITED/M INOR PROB HOSPITAL [facility] - 9 9 [facility] OUTPATIEN INC T EMERGENCY 46157 [facility] 9 9 [facility] LOW/MODER SEVERITY [facility] 9 9 [facility] OUTPATIEN INC T EMERGENCY 62862 [facility] 8 8 [facility] VISIT HIGH/URGE NT SEVERITY HOSPITAL [facility] - 8 8 [facility] T
--- OUTSIDE RECORDS SUMMARY | 2017-02-05 10:11 | External Medical Summary Rpt ---
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 W/INTERP INC INC & POSTPROCE [place]VISI ON 3D 52364 [facility] RENDERING 2 [facility] INC INC W/INTERP& [place] [address] [facility] HEAD/BRAI 2 [facility] N W/[place] [address] [facility] P[facility] CERVICAL 2 [facility] SPINE W/O INC INC CONTRAST MATERIAL MOE 66044 [facility] POST-VOID 2 [place] ING ADULT & RESIDUAL PED URINE&/BL ADDER CAP OTHER 5732 [place] CYSTOSCOP 2 [facility] OTHER 5979 [place] REPAIR OF 2 [facility] STRESS INCONTINE TNE ECG 88732 [place] ROUTINE 2 [facility] W/LEAST 12 LDS TRCG ONLY W/O I&R PRESSURIZ 89714 [place] ED/NONPRE 2 [facility] INHALATIO N TREATMENT SLING 02909 [place] OPERATION 2 [facility] INCONTINE TNE RADIOLOGI 73604 [facility] C 2 [facility] EXAMINATI INC INC ON FOOT 2 VIEWS RADEX 26708 [facility] CALCANEUS 2 [facility] MINIMUM INC INC 2 VIEWS FLUOR 32228 [facility] NEEDLE/CA 2 N N TH [facility] SPINE/PAR HOSPITA HOSPITA ASPINAL DX/THER ADDON NJX 83381 [facility] DX/THER 2 N N SBST [facility] EPIDURAL/ HOSPITA HOSPITA SUBARACH LUMBAR/SA CRAL INJECTION J2250 [facility] 2 N N MIDAZOLAM [facility] HCL PER HOSPITA HOSPITA 1 MG INJECTION 0392 [facility] OF OTHER 2 N N AGENT [facility] INTO HOSPITA HOSPITA SPINAL CANAL INJECTION 9923 [facility] OF 2 N N STEROID [facility] HOSPITA HOSPITA INJECTION J2001 [facility] 2 N N LIDOCAINE [facility] HCL HOSPITA HOSPITA INTRAVENO US INFUS 10 MG INJECTION J1100 [facility] 2 N N DEXAMETHO [facility] SONE HOSPITA HOSPITA SODIUM PHOSPHATE 1 MG RADEX 27322 MAXINEAUTUMN MAXINEAUTUMN SHOULDER 2 [facility] MINIMUM 2 VIEWS RADEX 77009 NAEEMILA [facility] ANKLE 2 [facility] MIN[address] [place] [address] CHICA COTO HEAD/BRAI 2 [facility] HOSPITAL CONTRAST MATERIAL RADIOLOGI 30750 [facility] C 2 [facility] EXAMINATI INC INC ON KNEE 3 VIEWS RADEX 09320 CHICA GOODMANAUTUMN FOOT 2 [facility] MINIMUM 3 VIEWS THERAPEUT 30209 NAEEMILA COTO IC 2 [facility] TIC/DX INJECTION SUBQ/IM THERAPEUT 02513 [facility] IC 2 [facility] MEM [...] W/POS EQUIPME EQUIPME ARWAY PRESSURE DEVICE RADEX 51536 [facility] ELBOW 2 [facility] INC MINIMUM 3 VIEWS PRESSURIZ 44776 [facility] ED/NONPRE 2 Y Y SSURIZED [facility] INHALATIO N TREATMENT PPSV23 86940 [facility] VACCINE 2 2 Y Y YRS OR HOSPITAL HOSPITAL OLDER FOR SUBQ/IM USE LAPS SURG 94793 [facility] 2 Y Y ESOPG/GST [facility] R FUNDOPLAS TY INJECTION J0330 [facility] 2 Y Y SUCCINYLC [facility] HOLINE CHLORIDE UP TO 20 MG INJECTION J3010 [facility] FENTANYL 2 Y Y CITRATE [facility] 0.1 MG INFUSION J7030 [facility] NORMAL 2 Y Y SALINE [facility] SOLUTION 1000 CC INTRDUCR/ C1894 [facility] SHEATH 2 Y Y NOT GUID [facility] INTRACARD EP NON-LASR RINGERS J7120 [facility] LACTATE 2 Y Y INFUSION [facility] UP TO 1000 CC INJECTION J1170 [facility] 2 Y Y HYDROMORP [facility] OFELIA UP TO 4 MG INJECTION J1644 [facility] HEPARIN 2 Y Y SODIUM [facility] PER 1000 UNITS INJECTION J2550 [facility] 2 Y Y PROMETHAZ [facility] INE HCL UP TO 50 MG LAP PROC 4467 [facility] CREAT 2 Y Y ESOPHAGOG [facility] ASTR SPHNCTRIC COMPETNCE TUBING A7037 FELICIA DUARTE [...] AIRWAY EQUIPME EQUIPME PRESSURE [place]ICE [place] LOWER 21338 [facility] EXTREMITY 2 [facility] W/O INC INC CONTRAST MATERIAL 3D 85014 [facility] RENDERING 2 [facility] INC INC W/INTERP& [place] [address] [facility] THYROXINE 2 [facility] [place] [address] [facility] BLOOD/URI 2 [facility] C ACID INC INC RHEUMATOI 10355 [facility] D FACTOR 2 [facility] [place] [address] [facility] P[facility] THYROID 2 [facility] STIMULATI INC INC NG HORMONE TSH COLLECTIO 95219 [facility] N VENOUS 2 [facility] BLOOD INC INC VENIPUNCT URE BLOOD 28081 [facility] COUNT 2 [facility] COMPLETE INC INC AUTO&AUTO DIFRNTL WBC CYANOCOBA 36530 [facility] SONG 2 [facility] VITAMIN INC INC B-12 PROTEIN 82454 [facility] P[facility] ELECTROPH 2 [facility] ORETIC INC INC FRACTJ&[place] [address] [facility] THIAMINE- 2 [facility] VITAMIN INC INC B-1 HEMOGLOBI 01414 [facility] N 2 [facility] GLYCOSYLA INC INC TERESSA A1C COMPREHEN 43201 [facility] SIVE 2 [facility] METABOLIC INC INC PANEL NEBULIZER E0570 FELICIA DUARTE WITH 2 HOME HOME COMPRESSO MEDICAL MEDICAL R EQUIPME EQUIPME CUL 38126 [facility] PRSMPTV 2 [facility] PTHGNC [place] [address] [facility] INFUSION 2 [facility] THERAPY/P INC INC ROPHYLAXI S /DX 1ST TO 1 [place] [address] [facility] INFUSION 2 [facility] MEM [...] THE GRP 2 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[employer] CHAIR PT TO &=300 LBS CONTINUOU E0601 FELICIA DUARTE S 1 HOME HOME POSITIVE MEDICAL MEDICAL AIRWAY EQUIPME EQUIPME PRESSURE DEVICE CONTINUOU E0601 FELICIA DUARTE S 1 HOME HOME POSITIVE MEDICAL MEDICAL AIRWAY EQUIPME EQUIPME PRESSURE DEVICE LOCM Q9967 CHICA COTO [phone] 1 [facility] MG/ HOSPITAL HOSPITAL IODINE CONCENTRA TION PER ML CT THORAX 26216 BOJOSHON MAXINEON 1 [facility] T MATERIAL NEBULIZER E0570 FELICIA DUARTE WITH 1 HOME HOME COMPRESSO MEDICAL MEDICAL R EQUIPME EQUIPME SLEEP STD 55826 CHICA COTO REC VNTJ 1 [facility] ECG/HRT RATE&O2 ATTN CONTINUOU E0601 FELICIA DUARTE S 1 HOME HOME POSITIVE MEDICAL MEDICAL AIRWAY EQUIPME EQUIPME PRESSURE DEVICE WALKER E0143 FELICIA DUARTE FOLDING 1 HOME HOME WHEELED MEDICAL MEDICAL ADJUSTABL EQUIPME EQUIPME E/FIXED HEIGHT PHYSICAL 46485 [facility] THERAPY 1 [facility] EVALUATIO INC INC N NEBULIZER E0570 FELICIA DUARTE WITH 1 HOME HOME COMPRESSO MEDICAL MEDICAL R EQUIPME EQUIPME POLYSOM 19095 CHICA GOODMANON 6/>YRS 1 [facility] W/CPAP 4/> ADDL GAY ATTND TUBING A7037 [...] W/POS EQUIPME EQUIPME ARWAY PRESSURE DEVICE POLYSOM 19653 CHICA COTO 6/>YRS 1 [facility] SLEEP 4/> HOSPITAL HOSPITAL ADDL GAY ATTND ECG 54657 [facility] ROUTINE 1 [facility] HOSP ECG INC INC W/LEAST 12 LDS TRCG ONLY W/O I&R APPLICATI 22793 [facility] ON SHORT 0 [facility] HOSP ARM INC INC SPLINT FOREARM-H AND STATIC MRI 44118 February SPINAL 9 MEDICAL CANAL SERV CERVICAL FOUNDATIO W/O CONTRAST MATRL NDL EMG 1 85515 [place] FEE, XTR W/WO 9 MEDICAL ISMAEL B RELATED SERV PARASPINA FOUNDATIO L AREAS NRV CNDJ 10527 [facility] AMPLT&LAT 9 Y Y [facility] NRV MOTOR W/F-WAVE STD NRV CNDJ 74293 [facility] AMPLITUDE 9 Y Y & [facility] LATENCY EACH NERVE SENSORY WRIST L3807 [employer] HAND 9 FINGR ORTHOS W/O JNT PREFAB CSTM FIT RADEX 14243 [place], ABDOMEN 1 9 MEDICAL CHUCK IMAGING ANTEROPOS ASSOCIATE TERIOR S VIEW CT UPPER 06721 CONTRERAS HAWK, EXTREMITY 9 MEDICAL VAMSHI P W/O IMAGING CONTRAST ASSOCIATE MATERIAL S 3D 98681 CONTRERAS KENN, RENDERING 9 MEDICAL VAMSHI P IMAGING W/INTERP& ASSOCIATE POSTPROC S DIFF WORK STATION WRIST L3908 ALFRED DAWKINSO HAND 9 REDD RAINEY MD ORTHOSIS PSC PSC EXT CONTROL COCK-UP PREFAB RADEX 87321 [facility] HUMERUS 9 [facility] MINIMUM 2 INC INC VIEWS RADEX 68326 CONTRERAS VELASQUEZUTCHER, FOREARM 2 9 MEDICAL CHUCK VIEWS IMAGING ASSOCIATE S RADEX 06212 [facility] WRIST 9 [facility] COMPLETE INC INC MINIMUM 3 VIEWS RADEX 92545 CONTRERAS AYANA, ELBOW 9 MEDICAL CHUCK COMPLETE IMAGING MINIMUM 3 ASSOCIATE VIEWS S RADEX 39491 [facility] HAND 9 [facility] MINIMUM 3 INC INC VIEWS RADEX 09125 [facility] SHOULDER 9 [facility] COMPLETE INC INC MINIMUM 2 VIEWS BLOOD 74262 [facility] COUNT 8 [facility] COMPLETE INC INC AUTO&AUTO DIFRNTL WBC RADIOLOGI 67997 Justen ALMANZA EXAM 8 MEDICAL CHUCK CHEST 2 IMAGING VIEWS ASSOCIATE FRONTAL&L S ATERAL BASIC 08313 [facility] METABOLIC 8 [facility] PANEL INC INC CALCIUM TOTAL CT PELVIS 36857 [facility] PIÑA, W/O 8 MEDICAL CHUCK CONTRAST IMAGING MATERIAL ASSOCIATE S RADEX ABD 60246 [facility] COMPL 8 MEDICAL CHUCK AQT ABD IMAGING W/S/E/D ASSOCIATE VIE[place] [address] [place] [address] [facility] PIÑ[place], ABDOMEN 8 MEDICAL CHUCK W/O IMAGING CONTRAST ASSOCIATE MATERIAL S 3D 48443 [facility] PIÑA, RENDERING 8 MEDICAL CHUCK IMAGING W/INTERP& ASSOCIATE POSTPROC S DIFF WORK STATION RADIOLOGI 82222 CONTRERAS PIÑA C 8 MEDICAL CHUCK EXAMINATI IMAGING ON PELVIS ASSOCIATE 1/2 S VIEWS RADEX 07952 CONTRERAS PIÑA, FOOT 8 MEDICAL CHUCK COMPLETE IMAGING MINIMUM 3 ASSOCIATE VIEWS S RADEX 30040 CONTRERAS PIÑA, SPINE 8 MEDICAL CHUCK LUMBOSACR IMAGING AL ASSOCIATE MINIMUM [address] PELVIS 77047 CONTRERAS VELASQUEZUTCHER, 8 MEDICAL CHUCK W/CONTR[place] [address] CONTRERAS VELASQUEZUTCHER, ABDOMEN 8 MEDICAL CHUCK W/CONTRAS IMAGING T ASSOCIATE MATERIAL S 3D 20044 CONTRERAS PIÑA, RENDERING 8 MEDICAL CHUCK IMAGING W/INTERP& ASSOCIATE POSTPROC S DIFF WORK STATION HEPATBL 78846 CONTRERAS HAWK DUX SYS 8 MEDICAL VAMSHI P IMG IMAGING GLBLDR ASSOCIATE S RADEX ABD 77933 CONTRERAS PIÑA, COMPL 8 MEDICAL CHUCK AQT ABD IMAGING W/S/E/D ASSOCIATE VIEWS [address] [place] [address] CONTRERAS PIÑA, ABDOMINAL 8 MEDICAL CHUCK REAL IMAGING TIME ASSOCIATE W/IMAGE S LIMITED Encounters Encounter Start End Date Code Location Performer Type Date [facility] [place] [address] 7 N OUTPATIEN COMMUNTIY T HOSPITA EMERGENCY 82987 [facility] 6 6 [facility] DEPARTMEN INC T VISIT MODERATE SEVERITY HOSPITAL [facility] - 6 6 [facility] OUTPATIEN [facility] T EMERGENCY 33738 [facility] 6 6 [facility] DEPARTMEN INC T VISIT HIGH/URGE NT SEVERITY HOSPITAL [facility] - 6 6 [facility] [place] OUTPATIEN INC T HOSPITAL [facility] - 6 6 [facility] OUTPATIEN INC T EMERGENCY 57390 [facility] 6 6 [facility] DEPARTMEN INC T VISIT LIMITED/M INOR PROB EMERGENCY 10870 [facility] 6 6 [facility] DEPARTMEN INC T VISIT MODERATE SEVERITY HOSPITAL [facility] - 6 6 [facility] OUTPATIEN INC T HOSPITAL [facility] - 6 6 [facility] OUTPATIEN INC T HOSPITAL [facility] - 6 6 [facility] OUTPATIEN INC T EMERGENCY 46950 [facility] 6 6 [facility] DEPARTMEN INC T VISIT HIGH/URGE NT SEVERITY HOSPITAL [facility] - 6 6 [facility] OUTPATIEN INC T OFFICE 15381 [facility] OUT[facility]IEN 6 6 [facility] VISIT INTERNAL 25 MED MINUTES OFFICE 42366 [facility] [place] 5 5 [place] V[place] ORTHOPAED 15 [facility] MINUTES OFFICE 65683 [facility] OUT[facility]IEN 5 5 [facility] NEW 45 INTERNAL MINUTES [facility]PITAL CISCO - 5 5 [facility]PATIEN [facility] T OFFICE 34861 [facility] 5 5 [place] VIS[place] ORTHOPAED 15 [facility] MINUTES OFFICE 95472 [facility] 5 5 [place] T VIS[place] ORTHOPAED 15 [facility] MINUTES EMERGENCY 73502 [facility] 5 5 [facility] DEPARTMEN INC T VISIT LOW/MODER SEVERITY HOSPITAL [facility] - 5 5 [facility] OUTPATIEN INC T HOSPITAL [facility] - 5 5 [facility] OUTPATIEN INC T HOSPITAL [facility] - 5 5 [facility] OUTPATIEN INC T HOSPITAL [facility] - 5 5 [facility] OUTPATIEN INC T HOSPITAL [facility]CO - 5 5 [facility] OUTPATIEN INC T EMERGENCY 16931 [facility] 5 5 [facility] DEPARTMEN INC T VISIT HIGH/URGE NT SEVERITY EMERGENCY 42047 [facility] 5 5 [facility] DEPARTMEN INC T VISIT MODERATE SEVERITY HOSPITAL [facility] - 5 5 [facility] OUTPATIEN INC T HOSPITAL [facility] - 5 5 [facility] OUTPATIEN INC HOSPITAL [facility] - 5 5 [facility] OUTPATIEN INC T EMERGENCY 27260 [facility] DEPT 5 5 [facility] VISIT INC HIGH SEVERITY& THREAT FUNCJ OFFICE 18676 KARYN CHRISTIANSENX BUX ANJ OUTPATIEN 5 5 MD T VISIT 10 MINUTES OFFICE 49519 KARYN BUX BUX ANJ OUTPATIEN 5 5 MD T NEW 20 MINUTES HOSPITAL [facility] - 4 4 [facility] OUTPATIEN INC Emergency TAYLER Humphreys MD (ER) 3 22:20 3 23:17 [facility]CO - 3 3 [facility] OUTPATIEN INC EMERGENCY 06517 [facility] 3 3 [facility] DEPARTMEN INC T VISIT MODERATE SEVERITY HOSPITAL [facility] - 3 3 [facility] OUTPATIEN INC OFFICE 27232 [facility] OUTPATIEN 3 3 MD T VISIT CONSULTIN 25 G SRV MINUTES Inpatient AMNISHA Huang MD (IN) 3 13:13 3 11:10 [facility] CHICA - 3 3 [facility] CISCO - 3 3 [facility] OUTPATIEN INC T Emergency TAYLER DOMINGO MD (ER) 3 17:39 3 19:17 [facility] OFFICE 64528 [facility] BRET OUTPATIEN 3 3 T VISIT CONSULTIN 25 G SRV MINUTES HOSPITAL [facility] - 3 3 [facility] - 3 3 [facility] 67862 [facility] OUTPATIEN 3 3 [facility] VISIT AD[facility] & 15 PED MINUTES HOSPITAL [facility] - 3 3 [facility] 3 3 [facility] 66052 [facility] OUTPATIEN 3 3 [facility] T VISIT ADULT & 25 PED MINUTES OFFICE 76853 [facility] OUTPATIEN 3 3 [facility] T VISIT ADULT & 15 PED MINUTES [facility] 3 [facility]ERGENC[facility] 29777 [facility] 3 [facility] HIGH SEVERITY& THREAT FUN OFFICE 73344 PONTIAC JENNIFER OUTPATIEN 3 3 JAL T VISIT NEUROSCIE 25 NCES CENT MINUTES OFFICE 92822 PONTIAC JENNIFER OUTPATIEN 3 3 JAL T NEW 45 NEUROSCIE MINUTES NCES CENT EMERGENCY 16771 [facility] 2 2 [facility] [place] [place] [facility] T VISIT LOW/MODER SEVERITY HOSPITAL [facility] - 2 2 [facility] [place] [place] [facility] PR[facility]IMARY OUTPATIEN 2 2 [facility] T VISIT ASSOCIATE ASSOCIATE 15 S PS S PS MINUT[facility] HOSP[facility] [place] - 2 2 [facility] CIS[facility] 2 2 [facility] [place] [place] [facility] 06096 PRIMARY PRIMARY OUTPATIEN 2 2 [facility] T VISIT ASSOCIATE ASSOCIATE 15 S PS S PS MINUTES OFFICE 44427 PRIMARY PRIMARY OUTPATIEN 2 2 [facility] T NEW 45 ASSOCIATE ASSOCIATE MINUTES S PS S PS OFFICE 53052 [facility] T VISIT CONSULTIN 25 G SRV MINUTES EMERGENCY 33176 [place] 2 2 [facility] T VISIT HIGH/URGE NT SEVERITY [facility]OSPITAL [place] - 2 2 [facility] EMERGENCY 04087 [place] 2 2 [facility] T VISIT MODERATE SEVERITY EMERGENCY 05057 [facility] 2 2 [facility] T VISIT LOW/MODER SEVERITY HOSPITAL [place] - 2 2 [facility] CIS[facility] - 2 2 [facility] EMERGENCY 76231 [facility] 2 2 [facility] T VISIT MODERATE SEVERITY HOSPITAL [facility] - 2 2 [facility] 2 2 [facility] T OFFICE [address]81 [place] ZUÑIGA OUTPATI 2 2 MEDICAL BOGDAN T NEW 30 SERV MINUTES [facility]OUND[place] OFFICE 31942 [place] AHMADI [facility] 2 2 MEDICAL T NEW 30 SERV MINUTES [facility] CISCO - 2 2 [facility] CISCO [facility] 2 2 [facility] [place] [facility] 1 1 [facility] [place] [facility] 1 1 [facility] - 1 1 [facility] [place] - 1 1 [facility] [place] - 1 1 [facility] CIS[facility] - 1 1 [facility] OUTPATIEN INC T OFFICE 40055 ELIANA NICOLE OUTPATIEN 0 0 MEDICAL T VISIT SERV 25 FOUNDATIO MINUTES HOSPITAL [facility] - 0 0 [facility] OUTPATIEN INC T OFFICE 21126 ELIANA NICOLE OUTPATIEN 0 0 MEDICAL T NEW 45 SERV MINUTES [facility] UNIV[facility] - 9 9 Y [facility] T HOSPITAL UNIVERSIT - 9 9 Y [facility] T OFFICE 07935 ELIANA SHAWN OUTPATICLAUDIA 9 9 MEDICAL BRITNEY T NEW 30 SERV MINUTES FOUNDATIO OFFICE 09265 [facility] 9 9 [place] MARVIN Campuzano ION ORTHOPAED NEW/ESTAB ICS PLC PATIENT 60 MIN [facility] CISCO - 9 9 [facility] OUTPATIEN INC T EMERGENCY 30817 [facility] 9 9 [facility] [place] [place] [facility] DEPARTMEN INC T VISIT LOW/MODER SEVERITY EMERGENCY 22054 BRAYDEN VALENTINO, [address] [facility] T VISIT HIGH/URGE ASSOCIATE NT S SEVERITY HOSPITAL [facility] - 9 9 [facility] [place] [place] [facility] OUTPATIEN INC T OFFICE 65030 CORDELIA STOREY OUTPATIEN 9 9 VERONICA MARTIN T VISIT 25 MINUTES OFFICE 67300 LOLI ENNIS OUTPATIEN 9 9 ALFRED SIMON T NEW 45 MINUTES HOSPITAL [facility] - 9 9 [facility] OUTPATIEN INC T OFFICE 01736 ARIADNE RON OUTPATIEN 9 9 LAWRENCE Bae T NEW 30 MINUTES OFFICE 17714 LIZY FERRERA 9 9 [facility] SEDRICK Collins T VISIT ORTHOPAED 15 IC CTR MINUTES PSC EMERGENCY 09682 [facility] 9 9 [facility] DEPARTMEN INC T VISIT LIMITED/M INOR PROB HOSPITAL CISCO - 9 9 [facility] [place] [place] [facility] OUTPATIEN INC T EMERGENCY 57469 [facility] 9 9 [facility] [place] [place] [facility] T VISIT LOW/MODER SEVERITY HOSPITAL C[facility] - 9 9 [facility] [place] [place] [facility] OUTPATIEN INC T EMERGENCY 95131 [facility] 8 8 [facility] [place] [place] [facility] [facility]IT H[facility] - 8 8 [facility] [place] [place] [facility]
[2017-02-05 10:17] LABS: URINE BILIRUBIN - DIPSTICK NEGATIVE (NEG); URINE BLOOD NEGATIVE (NEG)
--- OUTSIDE RECORDS SUMMARY | 2017-02-05 10:19 | External Medical Summary Rpt ---
Author Author , Organization [employer] Address Unknown Phone Unavailable Care Team Providers Care Slate Trimmer Name Role Phone LAWRENCE RON, Unavailable Unavailable LAWRENCE RON, GISSEL Unavailable Unavailable LORNA LUANN ANT, LUANN ANT Unavailable Unavailable [facility] Unavailable Unavailable HOSPITAL, [facility] BUX ANJ, BUX ANJ Unavailable Unavailable GOMEZ DERRICK, Unavailable Unavailable GOMEZ DERRICK ZUÑIGA BOGDAN, Unavailable Unavailable ZUÑIGA BOGDAN [facility] Unavailable Unavailable ADULT & PED, [facility] ADULT & PED [facility] Unavailable Unavailable [facility] ALFRED ENNIS, Unavailable Unavailable ALFRED ENNIS MADISON BRET, MADISON BRET Unavailable Unavailable AYANACHUCK CAUSEY, Unavailable Unavailable [facility] Unavailable Unavailable [facility] Un[place] [facility] [place] FEE, ISMAEL B, FEE, Unavailable Unavailable ISMAEL B RICARDO VALENTINO, Unavailable Unavailable RICARDO VALENTINO GAINEY Unavailable Unavailable [facility] Unavailable Unavailable HOSPITA, [facility] Unavailable Unavailable HOSPITA, [facility] SEDRICK TREVINO[facility] Unavailable Unavailable SEDRICK TREVINO [facility] Unavailable Unavailable INC, [facility] Unavailable Unavailable HOSPITAL P, [facility], Unavailable Unavailable [facility] DAHL TRA, DAHL TRA Unavailable Unavailable KAMINENI, BRITNEY, Unavailable Unavailable KAMINENI, BRITNEY February, Unavailable Unavailable [facility] Unavailable [facility]available [facility], [facility] Unavailable [facility]available [facility], [facility] KARYN NOGUEIRA MD, KARYN Unavailable Unavailable VAMSHI HYLTON MD, Unavailable Unavailable VAMSHI HAWK, Unavailable Unavailable VERONICA STATON, Unavailable Unavailable VERONICA STOREY MD Unavailable Unavailable CONSULTING SRVBRET MD [facility] GERRY TOD, GERRY TOD Unavailable Unavailable ALFRED RAINEY MD Unavailable Unavailable [facility], ALFRED RAINEY MD [facility] GALDINO MARCELINO, GALDINO MARCELINO Unavailable Unavailable [facility] Unavailable Un[facility], [facility] Unavailable [facility]available [facility], [facility], Unavailable Unavailable [facility], Unavailable Unavailable [facility], Unavailable Unavailable [facility] MARVIN PIZARRO, Unavailable Unavailable MARVIN PIZARRO Purpose Continuity of Care Document - 01-03-2008 through 2016 Problems Code Diagnosis DOS Provider Status M542 CERVICALGIA 11-15-2016 [facility] HOSPITA I10 ESSENTIAL 08-03-2016 [facility] PRIMARY [facility] HYPERTENSIO INC N J209 ACUTE 08-03-2016 [facility] BRONCHITIS [facility] UNSPECIFIED INC [id number] LACERATION 08-03-2016 [facility] W/O FOREIGN [facility] BODY SCALP INC INITIAL ENC Z720 TOBACCO USE 08-03-2016 [facility] INC [id number] UNSPECIFIED 07-20-2016 [place] ASTHMA [facility] WITH ACUTE HOSPITAL P EXACERBATIO N [id number] PAIN IN 06-23-2016 [place] RIGHT UPPER [facility] ARM INC M436 TORTICOLLIS 06-07-2016 [facility] INC Z1231 ENCOUNTER 06-05-2016 [place] SCREENING [facility] MAMMO MALIG INC NEOPLASM BREAST R748 ABNORMAL 04-11-2016 [place] LEVELS OF MEM [facility] OTHER SERUM INC ENZYMES K37 UNSPECIFIED 04-02-2016 [facility] S M5412 RADICULOPAT 01-05-2016 [place] [facility] CERVICAL [facility] INTERNAL MED M545 LOW BACK 08-03-2015 [facility] [place] PAIN [facility] PLC G4733 OBSTRUCTIVE 07-02-2015 [place] SLEEP [place] APNEA ADULT INTERNAL PEDIATRIC MED G629 POLYNEUROPA 07-02-2015 [place] UNSPECIFIED INTERNAL MED Q20189 OTHER LONG 07-02-2015 [facility] TERM [facility] CURRENT INC DRUG THERAPY 49951 DEGEN 05-27-2015 [facility] [place] LUMBAR/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 7242 LUMBAGO 05-13-2015 [facility] [place] [facility] PLC 4019 UNSPECIFIED 03-05-2015 [facility] ESSENTIAL [facility] HYPERTENSIO INC N 8470 NECK SPRAIN 03-05-2015 [facility] AND STRAIN [facility] INC 93407 OTHER 03-02-2015 [facility] NONSPECIFIC [facility] FINDINGS INC EXAMINATION OF BLOOD 5849 ACUTE 02-27-2015 [facility] KIDNEY [facility] FAILURE INC UNSPECIFIED V7612 OTHER 02-25-2015 [facility] SCREENING [facility] MAMMOGRAM INC 35028 ASTHMA, 02-24-2015 [facility] UNSPECIFIED [facility] , INC UNSPECIFIED STATUS 10434 OSTEOARTHRO 02-06-2015 [facility] S INVLV MX [facility] SITES BUT INC NOT SPEC GEN 7213 LUMBOSACRAL 02-06-2015 [facility] SPONDYLOSIS INC WITHOUT MYELOPATHY V180 FAMILY 02-06-2015 [facility] HISTORY OF [facility] DIABETES INC MELLITUS V810 SCREENING 02-06-2015 [facility] FOR [facility] ISCHEMIC INC HEART DISEASE 63395 PAIN IN 02-03-2015 [facility] JOINT, [facility] LOWER LEG INC 7231 CERVICALGIA 02-03-2015 [facility] INC 486 PNEUMONIA, 01-03-2015 [facility] ORGANISM [facility] UNSPECIFIED HOSPITAL P 64190 OBSTRUCTIVE 01-03-2015 [facility] CHRONIC [facility] BRONCHITIS HOSPITAL P WITH EXACERBATIO N 7224 DEGENERATIO 01-03-2015 [facility] N OF [facility] CERVICAL [facility] P INTERVERTEB RAL DISC 52631 DISPLCMT 12-21-2014 KARYN NOGUEIRA LUMBAR INTERVERT DISC W/O MYELOPATHY 7244 THORACIC/KENNETH 12-21-2014 [facility] SCHAEFERCRAL NEURITIS/RA DICULITIS UNSPEC 77034 DIAB W/O 07-04-2013 [facility] COMP TYPE [facility] II/UNS NOT INC STATED UNCNTRL 2720 PURE 04-29-2013 [facility] HYPERCHOLES [place] 81202 OBSTRUCTIVE 04-29-2013 [facility] SLEEP APNEA CONSULTING SRV 4053 AORTIC 04-29-2013 [facility] VALVE DISORDERS CONSULTING SRV 74218 SHORTNESS 04-29-2013 [facility] GRICELDA OF BREATH CONSULTING SRV 55538 PRECORDIAL 04-15-2013 [facility] 7823 EDEMA 03-28-2013 [facility] INC 2722 MIXED 02-13-2013 [facility] HYPERLIPIDE [place] CONSULTING SRV 4011 ESSENTIAL 02-13-2013 [facility] HYPERTENSIO N, BENIGN CONSULTING SRV 0651 PALPITATION 02-13-2013 [facility] Nelson MD CONSULTING SRV 60747 OTHER 01-18-2013 [place] [facility] 08072 OTHER 01-18-2013 [place] [facility] 7831 ABNORMAL 01-18-2013 [place] WEIGHT GAIN [facility] 94280 OTHER 01-18-2013 [place] DYSPNEA AND [facility] RESPIRATORY ABNORMALITI ES 5952 OTHER 12-20-2012 [facility]IC [facility] CYSTITIS ADULT & PED 5951 CHRONIC 11-29-2012 [facility] INTERSTITIA [facility] L CYSTITIS INC 5982 POSTOPERATI 11-29-2012 [facility] VE URETHRAL [place] STRICTURE ADULT & PED 5989 UNSPECIFIED 11-29-2012 [facility] URETHRAL [facility] STRICTURE INC V5869 LONG-TERM 11-29-2012 [facility] (CURRENT) [facility] USE OF INC OTHER MEDICATIONS 6258 OTH SPEC 11-20-2012 [facility] SYMPTOM [facility] ASSOC INC W/FEMALE GENITAL ORGANS 47639 URETHRAL 11-15-2012 [facility] STRICTURE [place] DUE TO ADULT & PED UNSPECIFIED INFECTION 83956 URGE 11-15-2012 [facility] INCONTINENC [place] E ADULT & PED 96900 INF DUE OTH 10-26-2012 [facility] GM-NEGATIVE HOSPITAL ORGANISMS CCE & UNS SITE 5990 URINARY 10-26-2012 [place] TRACT [facility] SITE NOT SPECIFIED 58800 UNSPECIFIED 10-26-2012 [place] VAGINITIS [facility] VULVOVAGINI TIS 64428 ABDOMINAL 10-26-2012 [facility] PAIN, LEFT [facility] QUADRANT 7919 OTHER 10-26-[address] [place] [address] [facility] EXAMINATION OF URINE 7295 PAIN IN [...] [facility] PNEUMONITIS 80527 INCOMPLETE 06-27-2012 [facility] BLADDER [place] EMPTYING ADULT & PED 2724 OTHER AND 06-20-2012 [place] UNSPECIFIED [facility] HYPERLIPIDE [place] 3558 UNSPECIFIED 06-20-2012 [facility] [place] 78007 RECTOCELE 06-20-2012 [facility] MENTION OF HOSPITAL UTERINE PROLAPSE 6256 FEMALE 06-20-2012 [place] STRESS [facility] E 01855 UNSPECIFIED 06-20-2012 [place] SLEEP [facility] 4439 UNSPECIFIED 06-12-2012 [facility] VASCULAR HOSPITA DISEASE 4549 ASYMPTOMATI 05-24-2012 [facility] 7840 HEADACHE 05-15-2012 [facility] 8489 UNSPECIFIED 05-15-2012 [place] SITE OF [facility] STRAIN 9248 CONTUSION 05-15-2012 [facility] MULTIPLE [facility] SITES [facility] 25911 PAIN IN 05-04-2012 [place] JOINT, [facility] HOS[facility] ANKLE AND INC FOOT 95832 PAIN IN 03-27-2012 [place] JOINT, [facility] UPPER ARM INC 2449 UNSPECIFIED 02-13-2012 [facility] HYPOTHYROID ISM 93271 ESOPHAGEAL 02-13-2012 [facility] 79323 BARRETTS 02-13-2012 [place] ESOPHAGUS [facility] 5533 DIAPHRAGMAT 02-13-2012 [facility] W[facility]OSP[facility] MENTION OBSTRUCTION /GANGREN V0382 NEED PROPH 02-13-2012 [facility] AGAINST STREP PNEUMONE V7281 PRE-OPERATI 02-12-2012 [place] [facility] CARDIOVASCU [facility]AT[facility] LAR EXAMINATION 11713 UNS 11-08-2011 [facility] GASTRITIS&G [facility] ASTRODUODIT INC IS W/O MENTION HEMORR 75442 DIAB 06-06-2011 [facility] W/HYPEROSMO STORE LARITY TYPE II/UNS TYPE UNCNTRL 64455 OTHER 06-06-2011 [facility]ORE 84872 OSTEOARTHRO 03-23-2011 [facility] UNSPEC HOME WHETHER MEDICAL GEN/LOC EQUIPME UNSPEC SITE V1254 PERSONAL HX 03-21-2011 [facility] TIA & CI [facility] W/O INC RESIDUAL DEFICITS 60144 DYSFNCT 03-08-2011 [facility] W/SLEEP HOSPITAL STGES/AROUS AL FRM SLEEP V8533 BODY MASS 03-08-2011 [facility] 33.0-33.9 HOSPITAL ADULT 79428 HYPOXEMIA 02-25-2011 [facility] V8532 BODY MASS 02-25-2011 [facility] 32.0-32.9 HOSPITAL ADULT 02335 ABDOMINAL 08-10-2010 [place] [facility] EPIGASTRIC [facility] 3544 CAUSALGIA 07-14-2010 [facility] OF UPPER [facility] LIMB INC 28944 PRIMARY 07-14-2010 [facility] FOCAL [facility] HYPERHIDROS INC IS V571 OTHER 07-14-2010 [facility] PHYSICAL [facility] THERAPY INC 26959 ABDOMINAL 07-06-2010 [place] [facility] GENERALIZED F[facility] V7189 OBSERVATION 06-28-2009 [facility] SPECIFIED SUSPECTED CONDITIONS 3542 LESION OF 06-14-2009 [place] [facility] NERVE SERV [facility] 55052 PAIN IN 06-14-2009 [place] [facility] SERV FOREARM F[facility] 63740 CLOSED 05-31-2009 [facility] [place] FRACTURE OF ORTHOPAEDIC NAVICULAR S PLC BONE OF WRIST 46626 CLOSED 05-31-2009 [facility] FRACTURE METACARPAL BONE SITE UNSPECIFIED 40224 UNSPECIFIED 05-25-2009 [facility] 88463 NAUSEA 05-25-2009 [facility] 07230 CLOSED 04-30-2009 [facility] FRACTURE OF [facility] INC UNSPECIFIED PART OF RADIUS 97731 UNSPECIFIED 04-20-2009 ALFRED RAINEY MD ARTHROPATHY PSC , FOREARM 27394 PAIN IN 04-12-2009 [place] [facility], MEDICAL SHOULD[facility] IMAGING [facility] ASSOC[facility]ATES 81945 PAIN IN 04-12-2009 [place] [facility] 8471 THORACIC 02-08-2009 [place] [facility] 3531 LUMBOSACRAL 12-10-2008 [facility] PLEXUS [facility] LESIONS INC 4660 ACUTE 08-10-2008 [facility] BRONCHITIS [facility] INC 5110 PLEURISY 08-10-2008 [facility] WITHOUT [facility] MENTION INC EFFUS/CURRE NT TB 7862 COUGH 08-10-2008 [facility] 72180 NAUSEA WITH 05-14-2008 [place] VOMITING [facility] 5759 UNSPECIFIED 03-13-2008 [place] DISORDER MEDICAL OF IMAGING GALLBLADDER ASSOC[facility]ATES 44993 ABDOMINAL 03-13-2008 [place] PAIN, MEDICAL UNSPECIFIED IMAGING SITE ASSOCIATES Medications Na ND Rx Da Fi Fi Am Da Di Ph RX Ph St me C No te ll ll ou ys ag ar # ys at rm s nt no ma ic us Or Da si cy ia de te s n re d AB 59 10 11 00 30 30 [...] 4- 5- 00 SI 09 LD ve AL 58 20 20 DE OD 23 09 09 RI OL 2 PH CH AR AR 35 MA D 0 CY W MG OF TA CY BL NT ET HI AN A 00 10 11 00 40 10 EA 14 AR Ac 59 -2 -[address] 87 NO ti 10 7- 5- 00 SI 26 LD ve 38 20 20 DE 50 09 09 RI 1 PH CH AR AR MA D CY W OF CY NT HI AN A DI 00 07 11 01 90 30 EA 14 No Ac AZ 17 -2 -[address] 44 t ti EP 23 3- 5- 00 SI 95 Av ve AM 92 20 20 DE ai 77 09 09 la 10 0 PH bl AR e MG MA CY TA BL OF ET CY NT HI AN A TE 00 08 10 00 14 14 EA 13 OC Ac MA 78 -2 -[address] 98 ON ti ZE 12 5- 8- 00 SI 82 NE ve PA 20 20 20 DE LL M 20 09 09 30 5 PH RO AR HN MG MA CY CA PS OF UL CY E NT HI AN A 00 09 10 00 40 10 EA 14 AR Ac 59 -2 -[address] 46 NO ti 10 8- 8- 00 SI 55 LD ve 34 20 20 DE 90 09 09 RI 1 PH CH AR AR MA D CY W OF CY NT HI AN A DI 00 07 10 00 90 [...] P OF CY NT HI AN A TR [...] 5 NT MG HI AN CP A 00 09 09 00 10 2 EA 14 No Ac 59 -0 -[address] 11 t ti 10 3- 0- 00 SI 61 Av ve 50 20 20 DE ai 20 09 09 la 1 PH bl AR e MA CY OF CY NT HI AN A LY 00 08 09 [...] CY OF CY NT HI AN A CA 00 08 09 01 90 30 EA 13 AR Ac RI 60 -0 -[address] 73 NO ti SO 32 4- 0- 00 SI 09 LD ve AL 58 20 20 DE OD 23 09 09 RI OL 2 PH CH AR AR 35 MA D 0 CY W MG OF TA CY BL NT ET HI AN A TR 00 08 09 [...] 5 NT MG HI AN CP A TI 57 08 09 00 90 [...] 00 60 30 EA 13 AR Ac AL 74 -1 -[address] 82 NO [...] BL CY ET NT HI AN A CA 00 08 08 00 90 30 EA 13 AR Ac RI 60 -0 -[address] 73 NO ti SO 32 4- 3- 00 SI 09 LD ve AL 58 20 20 DE OD 23 09 09 RI OL 2 PH CH AR AR 35 MA D 0 CY W MG OF TA CY BL NT ET HI AN A TE 00 07 08 00 14 14 EA 13 No Ac MA 78 -2 -[address] 64 t ti ZE 12 8- 3- 00 SI 93 Av ve PA 20 [...] 5 NT MG HI AN CP A Immunization Name Date Route CVX Reacti Commen Provid Is Given on t er Refuse d PPSV23 UNIVER No 2011 [facility] 2 AL YRS OR OLDER FOR SUBQ/I M USE Procedures Procedure DOS Code Location Performer Comment MRI 52328 [facility] SPINAL 7 N N CANAL COMMUNTIY COMMUNTIY [facility] HOSPITA W/O CONTRAST MATRL RADIOLOGI 69155 [facility] [place] EXAM 6 [facility] CHEST 2 INC INC VIEWS FRONTAL&L ATERAL BLOOD 60533 [facility] COUNT 6 [facility] COMPLETE INC INC AUTO&AUTO DIFRNTL WBC IAADI 34805 [facility] INFLUENZA 6 [facility] B VIRUS INC INC IAADI 01960 [facility] INFFLUENZ 6 [facility] [place] [address] [facility] HEAD/BRAI 6 [facility] N W/O INC INC CONTRAST MATERIAL COMPREHEN 82521 [facility] SIVE 6 [facility] METABOLIC INC INC PANEL SIMPLE 43317 [facility] REPAIR 6 [facility] SCALP/NEC INC INC K/AX/ASHLEY T/TRUNK 2.5CM/< ECG 52681 [facility] ROUTINE 6 [facility] W/LEAST P 12 LDS I&R ONLY CREATINE 12996 [facility] KINASE MB 6 [facility] [place] [address] [facility] INFUSION 6 [facility] THERAPY/P INC INC ROPHYLAXI S /DX 1ST TO 1 HR THERAPEUT 34560 [facility] IC 6 [facility] INJECTION INC INC IV PUSH EACH NEW DRUG COMPREHEN 44249 [facility] SIVE 6 [facility] METABOLIC INC INC PANEL ECG 61948 [facility] ROUTINE 6 [facility] ECG INC INC W/LEAST 12 LDS TRCG ONLY W/O I&R NATRIURET 01243 [facility] IC 6 [facility] PEPTIDE INC INC PRESSURIZ 06595 [facility] ED/NONPRE 6 [facility] SSURIZED INC INC INHALATIO N TREATMENT C-REACTIV 13395 [facility] E PROTEIN 6 [facility] INC INC RADIOLOGI 13851 [facility] C 6 [facility] EXAMINATI INC INC ON CHEST SINGLE VIEW FRONTAL CREATINE 67207 [facility] KINASE 6 [facility] TOTAL INC INC IAADI 11061 [facility] [place] INFFLUENZ 6 [facility] A A VIRUS INC INC IAADI 68497 [facility] [place] INFLUENZA 6 [facility] B VIRUS INC INC FIBRIN 88572 [facility] [place] DGRADJ 6 [facility] PRODUCTS INC INC D-DIMER QUAL/SEMI LENO SEDIMENTA 77526 [facility] [place] TION RATE 6 [facility] RBC INC INC NON-AUTOM ATED BLOOD 32565 [facility] COUNT 6 [facility] COMPLETE INC INC AUTO&[place] [address] [facility] TROPONIN 6 [facility] [place] [address] [facility] TROPONIN 6 [facility] QUANTITAT INC INC KEAGAN BLOOD 02656 [facility] COUNT 6 [facility] COMPLETE INC INC AUTO&AUTO DIFRNTL WBC THER 99018 [facility] PROPH/DX 6 [facility] NJX IV INC INC PUSH SINGLE/1S T SBST/DRUG RADIOLOGI 28759 [facility] [place] EXAM 6 [facility] CHEST 2 INC INC VIEWS FRONTAL&L ATERAL NATRIURET 31246 [facility] IC 6 [facility] PEPTIDE INC INC FIBRIN 48587 [facility] DGRADJ 6 [facility] PRODUCTS INC INC D-DIMER QUAL/SEMI LENO CREATINE 95352 [facility] KINASE 6 [facility] TOTAL INC INC ECG 19458 [facility] ROUTINE 6 [facility] ECG INC INC W/LEAST 12 LDS TRCG ONLY W/O I&R COMPREHEN 56234 [facility] SIVE 6 [facility] METABOLIC INC INC PANEL CREATINE 87226 [facility] KINASE MB 6 [facility] FRACTION INC INC ONLY THERAPEUT 84976 [facility] IC 6 [facility] INJECTION INC INC IV PUSH EACH NEW DRUG INJECTION J2405 [facility]K 6 [facility] ONDANSETR INC INC ON HCL PER 1 MG SCREENING G0202 [facility]K 6 [facility] MAMMOGRAP INC INC HY ELIZABETH INCL CAD WHEN PERFORMD COMPUTER- 39099 [facility] AIDED 6 [facility] [place] [address] [facility] ABDOMINAL 6 [facility] REAL INC INC TIME W/IMAGE LIMITED BLOOD 83452 [facility] COUNT 6 [facility] COMPLETE INC INC AUTO&AUTO DIFRNTL [facility] G0378 [facility] OBSERVATI 6 [facility] ON INC INC SERVICE PER HOUR COLLECTIO 21553 [facility] N VENOUS 6 [facility] BLOOD INC INC VENIPUNCT URE BASIC 28861 [facility] METABOLIC 6 [facility] PANEL INC INC CALCIUM TOTAL TX PROC G0238 [facility] IMPRV 6 [facility] RESP INC INC FUNCT NOT G0237 FCE-FCE 15MIN PRESSURIZ 90975 [facility] ED/NONPRE 6 [facility] SSURIZED INC INC INHALATIO N TREATMENT NONINVASI 32799 [facility] VE 6 [facility] EAR/PULSE INC INC OXIMETRY SINGLE DETER INJECTION J2405 [facility]K 6 [facility] ONDANSETR INC INC ON HCL PER 1 MG INJECTION J2405 [facility]K 6 [facility] ONDANSETR INC INC ON HCL PER 1 MG PRESSURIZ 31742 [facility] ED/NONPRE 6 [facility] SSURIZED INC INC INHALATIO N TREATMENT LAPAROSCO 43834 [facility] PIC 6 [facility] APPENDECT INC INC EDELMIRA LEVEL III 15702 [facility] SURG 6 [facility] PATHOLOGY INC INC GROSS&LOPEZ ROSCOPIC EXAM COMPREHEN 22564 [facility] SIVE 6 [facility] METABOLIC INC INC PANEL LOCM Q9967 [facility] 300-399 6 [facility] MG/ML INC INC IODINE CONCENTRA TION PER ML INJECTION J2710 [facility]K 6 [facility] NEOSTIGMI INC INC NE METHYLSUL FATE UP TO 0.5 MG INITIAL 27173 [facility] GERRY SORIANO OBSERVATI 6 PHYSICIAN ON S GROUP CARE/DAY 30 MINUTES INJECTION J0330 [facility]K 6 [facility] SUCCINYLC INC INC HOLINE CHLORIDE UP TO 20 MG HOSP[facility] G0378 [facility] OBSERVATI 6 [facility] ON INC INC SERVICE PER HOUR ECG 28409 [facility] ROUTINE 6 [facility] ECG INC INC W/LEAST 12 LDS TRCG ONLY W/O I&R BLOOD 61021 [facility] COUNT 6 [facility] COMPLETE INC INC AUTO&AUTO DIFRNTL WBC GONADOTRO 04212 [facility] PIN 6 [facility] [place] [address] [facility] ABDOMEN & 6 [facility] PELVIS INC INC W/CONTRAS T MATERIAL THER 76822 [facility] PROPH/DX 6 [facility] NJX IV INC INC PUSH SINGLE/1S T SBST/DRUG URNLS DIP 77325 [facility]K 6 [facility] STICK/TAB INC INC LET REAGENT AUTO MICROSCOP Y HEMOGLOBI 83279 [facility] PEKC N 5 [facility] GLYCOSYLA INC INC TERESSA A1C LIPID 09432 [facility] PANEL [facility] INC INC BLOOD 11939 [facility] COUNT [facility] COMPLETE INC INC AUTO&AUTO DIFRNTL WBC CYANOCOBA 74171 [facility] SONG [facility] VITAMIN INC INC B-12 COLLECTIO 93786 [facility] P[facility] N VENOUS 5 [facility] BLOOD INC INC VENIPUNCT URE COMPREHEN 48623 [facility] SIVE 5 [facility] [place] [address] [facility] P[facility] THYROID 5 [facility] STIMULATI INC INC NG HORMONE TSH SYPHILIS 37879 [facility] TEST [facility] NON-TREPO INC INC NEMAL ANTIBODY QUAL RADEX 37885 [facility] SPINE 5 [facility] CERVICAL INC INC 2 OR 3 VIEWS THERAPEUT 04230 [facility] IC [facility] PROPHYLAC INC INC TIC/DX INJECTION SUBQ/IM BASIC 11001 [facility] METABOLIC 5 [facility] PANEL INC INC CALCIUM TOTAL COLLECTIO 72045 [facility] N VENOUS 5 [facility] BLOOD INC INC VENIPUNCT URE BASIC 17646 [facility] METABOLIC [facility] PANEL INC INC CALCIUM TOTAL COMPUTER- 62601 [facility] AIDED [facility] DETECTION INC INC SCREENING MAMMOGRAP HY SCREENING G0202 [facility] MAMMOGRAP INC INC [place] [address] [facility] INFUSION 5 [facility] THERAPY/P INC INC ROPHYLAXI S /DX 1ST TO 1 HR URNLS DIP 61976 [facility] STICK/TAB INC INC LET REAGENT AUTO MICROSCOP Y RADIOLOGI 01313 [facility] C [facility] EXAMINATI INC INC ON PELVIS 1/2 VIEWS THERAPEUT 66770 [facility] IC [facility] PROPHYLAC INC INC TIC/DX INJECTION SUBQ/IM RADIOLOGI 66169 [facility] C [facility] EXAMINATI INC INC ON FEMUR 2 VIEWS RADEX 28432 [facility] SPINE 5 [facility] LUMBOSACR INC INC AL MINIMUM 4 VIEWS INJECTION J1040 [facility] METHYLPRE INC INC DNISOLONE ACETATE 80 MG INJECTION J2405 [facility] ONDANSETR INC INC ON HCL PER 1 MG RADIOLOGI 37316 [facility] C EXAM 5 [facility] KNEE INC INC COMPLETE 4/MORE VIEWS RADEX 62126 [facility] SPINE 5 [facility] CERVICAL INC INC 4 OR 5 VIEWS PRESSURIZ 49590 [facility] ED/NONPRE 5 [facility] SSURIZED INC INC INHALATIO N TREATMENT NONINVASI 47296 [facility] VE [facility] EAR/PULSE INC INC OXIMETRY SINGLE [facility] G0378 [facility] OBSERVATI 5 [facility] ON INC INC SERVICE PER HOUR INJECTION J0456 [facility] AZITHROMY INC INC FRANCHESCA 500 MG BASIC 44605 [facility] METABOLIC 5 [facility] PANEL INC INC [facility] G0378 [facility] OBSERVATI 5 [facility] ON INC INC SERVICE PER HOUR NONINVASI 31008 [facility] VE 5 [facility] EAR/PULSE INC INC OXIMETRY SINGLE DETER PRESSURIZ 26556 [facility] ED/NONPRE 5 [facility] SSURIZED INC INC INHALATIO N TREATMENT SMR PRIM 19686 [facility] SRC 5 [facility] GRAM/GIEM INC INC SA STAIN BCT FUNGI/LUIS L BLOOD 19395 [facility] COMPLETE INC INC AUTO&AUTO DIFRNTL WBC CUL BACT 64258 [facility] XCPT 5 [facility] URINE INC INC BLOOD/STO OL AEROBIC ISOL COLLECTIO 40624 [facility] N VENOUS 5 [facility] BLOOD INC INC VENIPUNCT URE CREATINE 51062 [facility] KINASE 5 [facility] TOTAL INC INC BLOOD 85033 [facility] COUNT 5 [facility] COMPLETE INC INC AUTO&[place] [address] [facility] TROPONIN 5 [facility] QUANTITAT INC INC [place] RADIOLOGI 75611 [facility] C EXAM 5 [facility] CHEST 2 INC INC VIEWS FRONTAL&L ATERAL CULTURE 82132 [facility] BACTERIAL 5 [facility] BLOOD INC INC AEROBIC W/ID ISOLATES PRESSURIZ 81595 [facility] ED/NONPRE 5 [facility] SSURIZED [place] [address] [facility] INFUSION 5 [facility] THERAPY/P INC INC ROPHYLAXI S /DX 1ST TO 1 HR CREATINE 07243 [facility] KINASE MB 5 [facility] FRACTION INC INC ONLY ECG 47337 [facility] ROUTINE 5 [facility] ECG INC INC W/LEAST 12 LDS TRCG ONLY W/O I&[place] [address] [facility] INFUSION 5 [facility] THER INC INC PROPH ADDL SEQUENTIA L TO 1 HR THERAPEUT 89033 [facility] IC 5 [facility] INJECTION INC INC IV PUSH EACH NEW DRUG COMPREHEN 44733 [facility] P[facility] SIVE 5 [facility] METABOLIC INC INC [facility] G0378 [facility] OBSERVATI 5 [facility] ON INC INC SERVICE PER HOUR ECG 82314 [facility] DEAN ROUTINE 5 [facility] W/LEAST P 12 LDS I&R ONLY INJECTION J0456 [facility] AZITHROMY INC INC FRANCHESCA 500 MG INJECTION J2405 [facility] ONDANSETR INC INC ON HCL PER 1 MG COLLECTIO 50207 [facility] N VENOUS 5 [facility] BLOOD INC INC VENIPUNCT URE APPL 10646 [facility] MODALITY 4 [facility] 1/> AREAS INC INC ELEC STIMJ EA 15 MIN URNLS DIP 99048 [facility] STICK/TAB INC INC LET REAGENT AUTO MICROSCOP Y THERAPEUT 84396 [facility] IC 3 [facility] PROPHYLAC INC INC TIC/DX INJECTION SUBQ/IM 3D 54991 [facility] RENDERING 3 [facility] W/INTERP INC INC & POSTPROCE SS SUPERVISI ON HEMOGLOBI 61893 [facility] P[facility] N 3 [facility] GLYCOSYLA INC INC TERESSA A1C MRI 27818 [facility] SPINAL 3 [facility] CANAL INC INC LUMBAR W/O CONTRAST MATERIAL COLLECTIO 57054 [facility] N VENOUS 3 [facility] BLOOD INC INC VENIPUNCT URE ECHO 57941 [facility] BRET TTHRC R-T 3 MD 2D W/WO CONSULTIN M-MODE G SRV REST&STRS CONT ECG COLLECTIO 07140 [facility] COTO N VENOUS 3 [facility] VENIPUNCT URE FIBRIN 09919 [facility] COTO DGRADJ 3 [facility] D-DIMER QUANTITAT [place] ECHO 99340 [facility] TTHRC R-T 3 [facility] 2D INC INC W/WOM-MOD E COMPL SPEC&COLR D SLEEP STD 48739 [facility]ICA COTO REC VNTJ 3 [facility] ECG/HRT RATE&O2 ATTN XTRNL ECG 11552 BRET MADISON MADISON BRET & 48 HR 3 MD RECORDING CONSULTIN G SRV RADIOLOGI 48219 [facility]ICA COTO C EXAM [address] VIEWS FRONTAL&L ATERAL ECG 05167 BRET M[facility] BRET ROUTINE 3 MD ECG CONSULTIN W/LEAST G SRV 12 LDS W/I&R [place] 91187 CISCOAUTUMN PECK INFUSION 3 [facility] THERAPY/P INC INC ROPHYLAXI S /DX 1ST TO 1 HR THERAPEUT [facility] IC 3 [facility] INJECTION INC [place] [address] [facility] INFUSION 3 [facility] THERAPY INC INC PROPHYLAX IS/DX EA HOUR INJECTION J2405 [facility]K 3 [facility] ONDANSETR INC INC ON HCL PER 1 MG DILAT 68300 [facility] FEMALE 3 [facility] URETHRA INC INC GENERAL/C NDJ SPINAL ANES CYSTO 79257 [facility] CALIBRATI 3 [place] [facility] [place] DILAT ADULT & URTL PED STRIX/LORNA NOSIS CYSTOURET 51372 [facility] HROSCOPY 3 [facility] W/DIL ADULT & BLADDER PED GENERAL ANESTH DILATION 586 [facility] OF 3 [facility] URETHRA INC INC URNLS DIP 40505 [facility]K 3 [facility] STICK/TAB INC INC LET REAGENT AUTO MICROSCOP Y BLOOD 87369 [facility] COUNT 3 [facility] COMPLETE INC INC AUTO&AUTO DIFRNTL WBC COLLECTIO 19961 [facility] N VENOUS 3 [facility] BLOOD INC INC VENIPUNCT URE ECG 21883 [facility] ROUTINE 3 [facility] ECG INC INC W/LEAST 12 LDS TRCG ONLY W/O I&R COMPREHEN 06968 [facility] SIVE 3 [facility] METABOLIC INC INC PANEL COMPREHEN 46586 CHICA GOOD[facility]ON SIVE 3 [facility] [place] [address] CHICA COTO INFUSION 3 [facility] THERAPY/P HOSPITAL HOSPITAL ROPHYLAXI S /DX 1ST TO 1 HR PRESSURIZ 78618 [facility]ICA COTO ED/NONPRE 3 [facility] INHALATIO N TREATMENT THERAPEUT 11608 CHICA COTO IC 3 [facility] INJECTION [facility] IV PUSH EACH NEW DRUG BLOOD 31244 CHICA [facility]ON COUNT 3 [facility] AUTO&[place] [address] CHICA GOODMANON ABDOMEN & 3 [facility] W/CONTRAS T MATERIAL URNLS DIP 70616 [place] 3 [facility] STICK/TAB [facility] LET REAGENT AUTO MICROSCOP Y RADIOLOGI 32371 CHICA GOODMANON C EXAM 3 [facility] CHEST [address] [place] [address] HOSPITAL VIEWS FRONTAL&L ATERAL CULTURE 48452 CHICA COTO BACTERIAL 3 [facility] QUANTTATI VE COLONY COUNT URINE SMR PRIM 38962 CHICA GOOD[facility]ON SRC WET 3 [facility] NFCT AGT TISS ADI 06297 CHICA COTO SLIDE 3 [facility] SKN/HR/NL S FNGI/ECTO PARASIT THERAPEUT 93881 CHICA COTO IC 3 [facility] TIC/DX INJECTION SUBQ/[place] [address] CHICA COTO LIPASE 3 [facility] NERVE 81588 [facility] 3 JAL N STUDIES NEUROSCIE 7-8 NCES CENT STUDIES NEEDLE 10727 [place] JENNIFER EMG EA 3 JAL EXTREMTY NEUROSCIE W/PARASPI NCES CENT NL AREA COMPLETE STANDARD K0001 FELICIA DUARTE WHEELCHAI 3 HOME HOME R MEDICAL MEDICAL EQUIPME EQUIPME FILTER A7039 FELICIA FELICIA NON 2 HOME HOME DISPBL MEDICAL MEDICAL USED EQUIPME EQUIPME W/POS ARWAY PRESS DEVICE FULL FACE A7030 FELICIA FELICIA MASK 2 HOME HOME USED MEDICAL MEDICAL W/POS EQUIPME EQUIPME ARWAY PRESS DEVICE EA THER 79627 [facility] PROPH/DX 2 [facility] NJX IV INC INC PUSH SINGLE/1S T SBST/DRUG 3D 74776 [facility] RENDERING 2 [facility] INC INC W/INTERP& [place] [address] [facility] HEAD/BRAI 2 [facility] N W/O INC INC CONTRAST MATERIAL 3D 83168 [facility] RENDERING 2 [facility] W/INTERP INC INC & [place] [address] [facility] CERVICAL 2 [facility] SPINE W/O INC INC CONTRAST MATERIAL MOE 91983 [facility] POST-VOID 2 [place] [facility] ING ADULT & RESIDUAL PED URINE&/BL ADDER CAP ECG 08407 [facility] COTO ROUTINE [facility] W/LEAST 12 LDS TRCG ONLY W/O I&R SLING 10121 CHICA GOODMAN OPERATION [address] [facility] INCONTINE NCE PRESSURIZ 81340 CHICA COTO ED/NONPRE 2 [facility] INHALATIO N TREATMENT OTHER 5732 CHICA COTO CYSTOSCOP 2 [facility] OTHER 5979 CHICA COTO REPAIR OF [facility] STRESS INCONTINE MOE RADIOLOGI 65210 [facility] C 2 [facility] EXAMINATI INC INC ON FOOT 2 VIEWS RADEX 23354 [facility] CALCANEUS 2 [facility] MINIMUM INC INC 2 V[place] NJX 36314 [facility] DX/THER 2 N N SBST [facility] EPIDURAL/ HOSPITA HOSPITA SUBARACH LUMBAR/SA CRAL FLUOR 54944 [facility] NEEDLE/CA 2 N N TH [facility] SPINE/PAR HOSPITA HOSPITA ASPINAL DX/THER ADDON INJECTION J2001 [facility] 2 N N LIDOCAINE [facility] HCL HOSPITA HOSPITA INTRAVENO US INFUS 10 MG INJECTION J2250 [facility] 2 N N MIDAZOLAM [facility] HCL PER HOSPITA HOSPITA 1 MG INJECTION J1100 [facility] 2 N N DEXAMETHO [facility] SONE HOSPITA HOSPITA SODIUM PHOSPHATE 1 MG INJECTION 0392 [facility] OF OTHER 2 N N AGENT [facility] INTO HOSPITA HOSPITA SPINAL CANAL INJECTION 9923 [facility] OF 2 N N STEROID [facility] HOSPITA HOSPITA RADEX 06669 CHICA COTO ANKLE 2 [facility] MINIMUM [address] [place] [address] CHICA COTO HEAD/BRAI 2 [facility] N W/O HOSPITAL HOSPITAL CONTRAST MATERIAL RADEX 75484 MAXINEAUTUMN CHICA SHOULDER 2 [facility] MINIMUM 2 VIEWS RADIOLOGI 84064 [facility] C 2 [facility] EXAMINATI INC INC ON KNEE 3 VIEWS THERAPEUT 00680 CHICA COTO IC 2 [facility] TIC/DX INJECTION SUBQ/IM RADEX 28667 [facility] FOOT 2 [facility] COMPLETE INC INC MINIMUM 3 VIEWS THERAPEUT 67976 [facility] IC 2 [facility] HOSP PROPHYLAC INC INC TIC/DX INJECTION SUBQ/IM HEADGEAR A7035 FELICIA FELICIA USED 2 HOME HOME W/POSITIV MEDICAL MEDICAL E AIRWAY EQUIPME EQUIPME PRESSURE DEVICE TUBING A7037 FELICIA DUARTE USED WITH 2 HOME HOME POSITIVE MEDICAL MEDICAL AIRWAY EQUIPME EQUIPME PRESSURE DEVICE FULL FACE A7030 FELICIA FELICIA MASK 2 HOME HOME USED MEDICAL MEDICAL W/POS EQUIPME EQUIPME ARWAY PRESS DEVICE EA FILTER A7038 FELICIA FELICIA DISPBL 2 HOME HOME USED MEDICAL MEDICAL W/POS EQUIPME EQUIPME ARWAY PRESSURE DEVICE RADEX 98249 [facility] ELBOW 2 [facility] COMPLETE INC INC MINIMUM 3 VIEWS PRESSURIZ 42421 [facility] ED/NONPRE 2 Y Y SSURIZED [facility] INHALATIO N TREATMENT PPSV23 72933 [facility] VACCINE 2 2 Y Y YRS OR HOSPITAL HOSPITAL OLDER FOR SUBQ/IM USE INJECTION J3010 [facility] FENTANYL 2 Y Y CITRATE [facility] 0.1 MG INFUSION J7030 [facility] NORMAL 2 Y Y SALINE [facility] SOLUTION 1000 CC INJECTION J1170 [facility] 2 Y Y HYDROMORP [facility] OFELIA UP TO 4 MG INJECTION J1644 [facility] HEPARIN 2 Y Y SODIUM [facility] PER 1000 UNITS INTRDUCR/ C1894 [facility] SHEATH 2 Y Y NOT GUID [facility] INTRACARD EP NON-LASR RINGERS J7120 [facility] LACTATE 2 Y Y INFUSION [facility] UP TO 1000 CC INJECTION J0330 [facility] 2 Y Y SUCCINYLC [facility] HOLINE CHLORIDE UP TO 20 MG LAPS SURG 04852 [facility] 2 Y Y ESOPG/GST [facility] R FUNDOPLAS TY LAP PROC 4467 [facility] CREAT 2 Y Y ESOPHAGOG [facility] ASTR SPHNCTRIC COMPETNCE INJECTION J2550 [facility] 2 Y Y [facility] INE HCL UP TO 50 MG FULL FACE A7030 FELICIA DUARTE MASK 2 HOME HOME USED MEDICAL MEDICAL W/POS EQUIPME EQUIPME ARWAY PRESS DEVICE EA TUBING A7037 FELICIA DUARTE USED WITH 2 [...] MEDICAL MEDICAL AIRWAY EQUIPME EQUIPME PRESSURE DEVICE COMPREHEN 32781 [facility] SIVE 2 [facility] [place] [address] [facility] THYROID 2 [facility] STIMULATI INC INC NG HORMONE TSH COLLECTIO 12662 [facility] N VENOUS 2 [facility] BLOOD INC INC VENIPUNCT URE PROTEIN 39589 [facility] ELECTROPH 2 [facility] ORETIC INC INC FRACTJ&[place] [address] [facility] THIAMINE- 2 [facility] VITAMIN INC INC B-1 3D 25669 [facility] RENDERING 2 [facility] INC INC W/INTERP& POSTPROC DIFF WORK STATION CYANOCOBA 07735 [facility] SONG 2 [facility] VITAMIN INC INC B-12 [place] [address] [facility] THYROXINE 2 [facility] [place] [address] [facility] BLOOD/URI 2 [facility] C ACID INC INC RHEUMATOI 32692 [facility] D FACTOR 2 [facility] QUANTITAT INC INC [place] HEMOGLOBI 25161 [facility] P[facility] N 2 [facility] GLYCOSYLA INC INC TERESSA A1C CT LOWER [address]12 [facility] EXTREMITY 2 [facility] W/O INC INC CONTRAST MATERIAL BLOOD 00351 [facility] COUNT 2 [facility] COMPLETE INC INC AUTO&AUTO DIFRNTL WBC NEBULIZER E0570 FELICIA DUARTE WITH 2 HOME HOME COMPRESSO MEDICAL MEDICAL R EQUIPME EQUIPME CUL 95053 [facility] PRSMPTV 2 [facility] PTHGNC [place] [address] [facility] INFUSION 2 [facility] THERAPY INC INC PROPHYLAX IS/[place] [address] [facility] INFUSION 2 [facility] THERAPY/P INC INC ROPHYLAXI S /DX 1ST TO 1 HR CONTINUOU E0601 FELICIA FELICIA S 2 HOME HOME POSITIVE MEDICAL MEDICAL AIRWAY EQUIPME EQUIPME PRESSURE DEVICE NEBULIZER E0570 FELICIA DUARTE WITH 2 HOME HOME COMPRESSO MEDICAL MEDICAL R EQUIPME EQUIPME CONTINUOU E0601 FELICIANAYANA DUARTE S 2 HOME HOME POSITIVE MEDICAL MEDICAL AIRWAY EQUIPME EQUIPME PRESSURE DEVICE NEBULIZER E0570 FELICIA DUARTE WITH 2 HOME HOME COMPRESSO MEDICAL MEDICAL R EQUIPME EQUIPME PWR K0823 THE THE GRP 2 STD 1 [employer] CHAIR PT TO &=300 LBS CONTINUOU E0601 FELICIA DUARTE S 1 HOME HOME POSITIVE MEDICAL MEDICAL AIRWAY EQUIPME EQUIPME PRESSURE DEVICE CONTINUOU E0601 FELICIANAYANA DUARTE S 1 HOME HOME POSITIVE MEDICAL MEDICAL AIRWAY EQUIPME EQUIPME PRESSURE DEVICE LOCM Q9967 CHICA COTO [phone] 1 [facility] MG/ML [facility] IODINE CONCENTRA TION PER ML CT THORAX 28222 CHICA COTO 1 [facility] T MATERIAL NEBULIZER E0570 FELICIA DUARTE WITH 1 HOME HOME COMPRESSO MEDICAL MEDICAL R EQUIPME EQUIPME SLEEP STD 71999 CHICA COTO REC VNTJ 1 [facility] ECG/HRT RATE&O2 ATTN CONTINUOU E0601 FELICIA DUARTE S 1 HOME HOME POSITIVE MEDICAL MEDICAL AIRWAY EQUIPME EQUIPME PRESSURE DEVICE WALKER E0143 FELICIA DUARTE FOLDING 1 HOME HOME WHEELED MEDICAL MEDICAL ADJUSTABL EQUIPME EQUIPME E/FIXED HEIGHT PHYSICAL 73022 [facility] THERAPY 1 [facility]OS[facility] EVALUATIO INC INC N NEBULIZER E0570 FELICIANAYANA DUARTE WITH 1 HOME HOME COMPRESSO MEDICAL MEDICAL R EQUIPME EQUIPME POLYSOM 59840 CHICA COTO 6/>YRS 1 [facility] W/CPAP 4/> ADDL GAY ATTND HUMDIFIR E0562 FELICIA FELICIA HEATED 1 HOME HOME USED MEDICAL MEDICAL W/POS EQUIPME EQUIPME ARWAY PRESSURE DEVICE HEADGEAR A7035 FELICIA FELICIA USED 1 HOME HOME W/POSITIV MEDICAL MEDICAL E AIRWAY EQUIPME EQUIPME PRESSURE DEVICE TUBING A7037 FELICIA FELICIA USED WITH 1 HOME HOME POSITIVE MEDICAL MEDICAL AIRWAY EQUIPME EQUIPME PRESSURE DEVICE CONTINUOU E0601 FELICIA DUARTE S 1 HOME HOME POSITIVE MEDICAL MEDICAL AIRWAY EQUIPME EQUIPME PRESSURE DEVICE FULL FACE A7030 FELICIA DUARTE MASK 1 HOME HOME USED MEDICAL MEDICAL W/POS EQUIPME EQUIPME ARWAY PRESS DEVICE EA FILTER A7039 FELICIA DUARTE NON 1 HOME HOME DISPBL MEDICAL MEDICAL USED EQUIPME EQUIPME W/POS ARWAY PRESS DEVICE FILTER A7038 FELICIA FELICIA DISPBL 1 HOME HOME USED MEDICAL MEDICAL W/POS EQUIPME EQUIPME ARWAY PRESSURE DEVICE POLYSOM 00009 CHICA COTO 6/>YRS 1 [facility] SLEEP 4/> HOSPITAL HOSPITAL ADDL GAY ATTND ECG 76608 [facility] ROUTINE 1 [facility] ECG INC INC W/LEAST 12 LDS TRCG ONLY W/O I&R APPLICATI 76412 [facility] ON SHORT 0 [facility] ARM INC INC SPLINT FOREARM-H AND STATIC MRI 70513 [place] February SPINAL 9 MEDICAL CANAL SERV CERVICAL FOUNDATIO W/O CONTRAST MATRL NDL EMG 1 53582 [facility] XTR W/WO 9 Y Y RELATED HOSPITAL [facility] NRV CNDJ 99293 [facility] AMPL[facility] 9 Y Y & [facility] LATENCY EACH NERVE SENSORY NRV CNDJ 73106 [place] FEE, AMPLT&LAT 9 MEDICAL ISMAEL B ENCY EA SERV NRV MOTOR FOUNDATIO W/F-WAVE STD WRIST L3807 [employer] HAND 9 FINGR ORTHOS W/O JNT PREFAB CSTM FIT RADEX 32572 [facility] ABDOMEN 1 9 [facility] INC INC ANTEROPOS TERIOR VIEW CT UPPER 52776 [facility] EXTREMITY 9 [facility] W/O INC INC CONTRAST MATERIAL 3D 00145 [facility] RENDERING 9 [facility] INC INC W/INTERP& POSTPROC DIFF WORK STATION WRIST L3908 ALFRED ALFRED HAND 9 REDD RAINEY MD ORTHOSIS PSC PSC EXT CONTROL COCK-UP PREFAB RADEX 80014 CONTRERAS BULLARDCHER, ELBOW 9 MEDICAL CHUCK COMPLETE IMAGING MINIMUM 3 ASSOCIATE VIEWS S RADEX 59755 [facility] HAND 9 [facility] MINIMUM 3 INC INC VIEWS RADEX 01674 [facility] SHOULDER 9 [facility] COMPLETE INC INC MINIMUM 2 VIEWS RADEX 69188 CONTRERAS AYANA, HUMERUS 9 MEDICAL CHUCK MINIMUM 2 IMAGING VIEWS ASSOCIATE S RADEX 96656 CONTRERAS AYANA, FOREARM 2 9 MEDICAL CHUCK VIEWS IMAGING ASSOCIATE S RADEX 90360 [facility] [place], WRIST 9 MEDICAL CHUCK COMPLETE IMAGING MINIMUM 3 ASSOCIATE VIEWS S RADIOLOGI 85477 CONTRERAS BULLARDCHER, C EXAM 8 MEDICAL CHUCK CHEST 2 IMAGING VIEWS ASSOCIATE FRONTAL&L S ATERAL BLOOD 22843 [facility] COUNT 8 [facility] COMPLETE INC INC AUTO&AUTO DIFRNTL WBC BASIC 57825 [facility] METABOLIC 8 [facility] PANEL INC INC CALCIUM TOTAL 3D 89458 CONTRERAS PIÑA, RENDERING 8 MEDICAL CHUCK IMAGING W/INTERP& ASSOCIATE POSTPROC S DI[place] A[place] 412[address] [facility]ER[facility], COMPL 8 MEDICAL CHUCK AQT ABD IMAGING W/S/E/D ASSOCIATE VIEWS [address] PELVIS 50668 CONTRERAS PIÑA, W/O 8 MEDICAL CHUCK [place] [address] [facility]ERAS [place], ABDOMEN 8 MEDICAL CHUCK W/O IMAGING CONTRAST ASSOCIATE MATERIAL S RADEX 43858 CONTRERAS PIÑ[place], FOOT 8 MEDICAL CHUCK COMPLETE IMAGING MINIMUM 3 ASSOCIATE VIEWS S RADEX 29394 CONTRERAS PIÑA, SPINE 8 MEDICAL CHUCK LUMBOSACR IMAGING AL ASSOCIATE MINIMUM 4 S VIEWS RADIOLOGI 83552 CONTRERAS PIÑA, C 8 MEDICAL CHUCK EXAMINATI IMAGING ON PELVIS ASSOCIATE 1/[address] [place] [address] CONTRERAS PIÑA, ABDOMEN 8 MEDICAL CHUCK W/CONTRAS IMAGING T ASSOCIATE MATERIAL S CT PELVIS 07391 CONTRERAS PIÑA, 8 MEDICAL CHUCK W/CONTRAS IMAGING T ASSOCIATE MATERIAL S 3D 85503 CONTRERAS PIÑA, RENDERING 8 MEDICAL CHUCK IMAGING W/INTERP& ASSOCIATE POSTPROC S DIFF WORK STATION HEPATBL 78041 CONTRERAS MONSERRAT HAWK SYS 8 MEDICAL VAMSHI [place] [address] CONTRERAS PIÑ[place], ABDOMINAL 8 MEDICAL CHUCK REAL IMAGING TIME ASSOCIATE W/IMAGE S LIMITED RADEX ABD 57614 CONTRERAS PIÑA, COMPL 8 MEDICAL CHUCK AQT ABD IMAGING W/S/E/D ASSOCIATE VIEWS 1 S VIEW CH Encounters Encounter Start End Date Code Location Performer Type Date [facility] [place] [address] 7 N OUTPATIEN COMMUNTIY T HOSPITA EMERGENCY 74412 [facility] 6 6 [facility] DEPARTMEN INC T VISIT MODERATE SEVERITY HOSPITAL [facility] - 6 6 [facility] OUTPATIEN INC T EMERGENCY 89304 [facility] 6 6 [facility] DEPARTMEN INC T VISIT HIGH/URGE NT SEVERITY HOSPITAL [facility] - 6 6 [facility] CISCO - 6 6 [facility] T EMERGENCY 74859 [facility] 6 6 [facility] VIS[facility] LIMITED/M INOR PROB HOSPITAL CISCO [facility] 6 6 [facility] OUTPATIEN [facility] T EMERGENCY 66620 [facility] 6 6 [facility] T VISIT MODERATE [facility]VERITY HOSPITAL CISCO - 6 6 [facility]PAT[facility]EN [facility] CISCO - 6 6 [facility]PATI[facility] T EMERGENCY 11311 [facility] 6 6 [facility] T VISIT [facility]IGH/URGE NT SEVERITY HOSPITAL CISCO [facility] 6 6 [facility] OUTPATIEN [facility] T OFFICE 88185 [place] [facility] 6 6 [facility] VISIT INTERNAL 25 MED MINUTES OFFICE 77373 [place] 5 5 [place] VISIT ORTHOPAED 15 [facility] MIN[facility]ES [facility] CISCO [facility] 5 5 [facility] T OFFICE 93758 [place] [facility] 5 5 [facility] T NEW 45 INTERNAL MINUTES MED OFFICE 51081 [place] OUTPAT[place] 5 5 [place] VIS[place] ORTHOPAED 15 [facility] MINUTES OFFICE 51189 [facility] [place] 5 5 [place] VIS[place] ORTHOPAED 15 [facility]ISCO [facility] 5 5 [facility] T EMERGENCY 06355 CISCO 5 5 [facility] T VISIT LOW/MODER SEVERITY HOSPITAL CISCO - 5 5 [facility] T HOSPITAL CISCO [facility] 5 5 [facility] T HOSPITAL CISCO - 5 5 [facility] T [facility] CISCO - 5 5 [facility] T EMERGENCY 30957 CISCO 5 5 [facility] DEPARTMEN INC T VISIT HIGH/URGE NT SEVERITY EMERGENCY 41035 CISCO 5 5 [facility] T VISIT MODERATE SEVERITY HOSPITAL CISCO [facility] 5 5 [facility] T HOSPITAL CISCO [facility] 5 5 [facility] T EMERGENCY 06847 CISCO DEPT 5 5 [facility] VISIT INC HIGH SEVERITY& THREAT [facility] CISCO [facility] 5 5 [facility] OUT[facility] T OFFICE 17216 YINKAAR BUX BUX ANJ OUTPATIEN 5 5 MD T VISIT 10 MINUTES OFFICE 36537 KARYN BUX BUX ANJ OUTPATIEN 5 5 MD T NEW 20 MINUTES HOSPITAL CISCO - 4 4 [facility] T HOSPITAL CISCO [facility] 3 3 [facility] OUTPATIEN [facility] T EMERGENCY 48373 CISCO 3 3 [facility] T VISIT MODERATE SEVERITY HOSPITAL CISCO [facility] 3 3 [facility] T OFFICE 19693 BRET MADISON MAD[facility] BERT OUTPATIEN 3 3 MD T VISIT CONSULTIN 25 G SRV MINUTES [facility] - 3 3 [facility] CISCO [facility] 3 3 [facility] T OFFICE 65703 BRET MADISON [facility]AD[facility] BRET OUTPATIEN 3 3 MD T VISIT CONSULTIN 25 G SRV MINUTES [facility]OSPITAL [facility] - 3 3 [facility] - 3 3 [facility] T OFFICE 33687 [facility] GOMEZ OUTPATIEN 3 3 [facility] T VISIT ADULT & 15 PED MINUTES HOSPITAL CISCO [facility] 3 3 [facility]PATIEN [facility]PITAL CISCO [facility] 3 3 [facility] OFF[facility] 01930 [facility] OUTPATIEN 3 3 [facility] T VISIT ADULT & 25 PED MINUTES OFFICE 20123 [facility] OUTPATIEN 3 3 [facility] VISIT ADULT & 15 PED MINUTES [facility] 3 3 [facility] HIGH SEVERITY& THREAT FUN OFFICE 07491 DALE JENNIFER OUTPATIEN 3 3 JAL T VISIT NEUROSCIE 25 NCES CENT MINUT[facility]ICE [facility] 3 JAL T NEW 45 NEUROSCIE MINUTES NCES CENT EMERGENCY 94474 CISCO 2 2 [facility] T VISIT LOW/MODER SEVERITY HOSPITAL CISCO - 2 2 [facility] OFF[facility] 03173 [facility] OUTPATIEN 2 2 [facility] T [facility]ISIT ASSOCIATE ASSOCIATE 15 S PS S PS MINUTES [facility] 2 2 [facility] CISCO [facility] 2 2 [facility] [id number] PRIMARY PRIMARY OUTPATIEN 2 2 [facility] T VISIT ASSOCIATE ASSOCIATE 15 S PS S PS MINUTES OFFICE [id number] PRIMARY PRIMARY OUTPATIEN 2 2 [facility] T NEW 45 ASSOCIATE ASSOCIATE MINUTES S PS S PS OFFICE [id number] BRET MADISON MADISON BRET OUTPATIEN 2 2 T VISIT CONSULTIN 25 G [facility] [place] - 2 2 [facility] EMERGENCY [id number] [place] 2 2 [facility] T VISIT HIGH/URGE NT SEVERITY EMERGENCY 18861 [facility] 2 2 [facility] T VISIT LOW/MODER SEVERITY EMERGENCY 58015 [place] 2 2 [facility] T VISIT MODERATE SEVERITY HOSPITAL [place] - 2 2 [facility] EMERGENC[facility] 18199 CISCO 2 2 [facility] T VISIT MODERATE SEVERITY HOSPITAL CISCO - 2 2 [facility] CISCO - 2 2 [facility] UNIVERSIT - 2 2 [facility] T OFFICE 68193 ELIANA ZARA OUTPATIEN 2 2 MEDICAL BOGDAN T NEW 30 SERV MINUTES FOUNDATIO OFFICE 40352 ELIANA AHMADI [facility] OUTPATIEN 2 2 MEDICAL T NEW 30 SERV MINUTES [facility] CISCO [facility] 2 2 [facility] CISCO - 2 2 [facility] [place] - 1 1 [facility] [place] - 1 1 [facility] CISCO [facility] 1 1 [facility] [place] - 1 1 [facility] [place] - 1 1 [facility] CISCO [facility] 1 1 [facility] OUTPATIEN INC T OFFICE 39757 ELIANA NICOLE OUTPATIEN 0 0 MED[facility] T [facility]IT SERV [facility] T OFFICE 15418 ELIANA KONG ANT OUTPATIEN 0 0 MEDICAL T NEW 45 SERV MINUTES [facility] UNIVERSIT - 9 9 Y [facility] UNIVERSIT - [address] [facility] T OFFICE 95982 ELIANA ESCOBAR OUTPATICLAUDIA 9 9 MEDICAL BRITNEY T NEW 30 SERV MINUTES [facility] OFFICE 61526 [facility] 9 9 [place] MARVIN Campuzano ION ORTHOPAED NEW/ESTAB ICS PLC PATIENT 60 MIN EMERGENCY 21818 CISCO 9 9 [facility] DEPARTMEN INC T VISIT LOW/MODER SEVERITY HOSPITAL [facility]ISCO - 9 9 [facility] OUTPATIEN INC T EMERGENCY 93941 BRAYDEN VALENTINO, 9 9 EMERGENCY [facility] DEPARTMEN SERVICES T VISIT HIGH/URGE ASSOCIATE NT S [facility] CISCO - 9 9 [facility] OUTPATIEN INC T OFFICE 88879 CORDELIA STOREY OUTPATIEN 9 9 VERONICA MARTIN T VISIT 25 MINUTES OFFICE 75399 LOLI ENNIS OUTPATIEN 9 9 ALFRED SIMON T NEW 45 MINUTES HOSPITAL CISCO - 9 9 [facility] OUTPATIEN INC T OFFICE 40319 ARIADNE RON OUTPATIEN 9 9 LAWRENCE Bae T NEW 30 MINUTES OFFICE 95723 LIZY FERRERA 9 9 [facility] SEDRICK Collins T VISIT ORTHOPAED 15 IC CTR MINUTES [facility] CISCO - 9 9 [facility] OUTPATIEN INC T EMERGENCY 08616 [facility]CO 9 9 [facility] DEPARTMEN INC T VISIT LIMITED/M [facility] CISCO - 9 9 [facility] OUTPATIEN INC T EMERGENCY 77586 [facility] - 8 8 [facility] OUTPATIEN INC T EMERGENCY 45391 [facility]CO 8 8 [facility]/URGE NT SEVERITY
--- OUTSIDE RECORDS SUMMARY | 2017-02-05 10:19 | External Medical Summary Rpt ---
Author Author , Organization [employer] Address Unknown Phone Unavailable Care Team Providers Care Card Filer Name Role Phone LAWRENCE RON, Unavailable Unavailable LAWRENCE RON, GISSEL Unavailable Unavailable LORNA LUANN ANT, LUANN ANT Unavailable Unavailable [facility] Unavailable Unavailable HOSPITAL, [facility] BUX ANJ, BUX ANJ Unavailable Unavailable GOMEZ DERRICK, Unavailable Unavailable GOMEZ DERRICK ZUÑIGA BOGDAN, Unavailable Unavailable ZUÑIGA BOGDAN [facility] Unavailable Unavailable ADULT & PED, [facility] Unavailable Unavailable [facility] ALFRED ENNIS, Unavailable Unavailable ALFRED ENNIS MADISON BRET, MADISON BRET Unavailable Unavailable AYANACHUCK CAUSEY, Unavailable Unavailable [facility]YANA[facility]UCK [facility] Unavailable Unavailable [facility] Un[place] [facility] [place] FEE, ISMAEL B, FEE, Unavailable Unavailable ISMAEL B RICARDO VALENTINO, Unavailable Unavailable RICARDO VALENTINO GAINEY Unavailable Unavailable [facility] Unavailable Unavailable HOSPITA, [facility] Unavailable Unavailable HOSPITA, [facility] SEDRICK TREVINO, Unavailable Unavailable SEDRICK TREVINO [facility] Unavailable Unavailable INC, [facility] Unavailable Unavailable HOSPITAL P, [facility] P [facility], Unavailable Unavailable [facility] DAHL TRA, DAHL TRA Unavailable Unavailable KAMINENI, BRITNEY, Unavailable Unavailable KAMINENI, BRITNEY February, Unavailable Unavailable [facility] [place] Unavailable Unavailable [facility] [place] [place] [facility] Unavailable Unavailable INTERNAL MED, [facility] INTER[facility] MED KARYN NOGUEIRA MD, KARYN Unavailable [...] [facility], Unavailable Unavailable [facility], Unavailable Unavailable [facility] MARVIN PIZARRO, Unavailable Unavailable MARVIN PIZARRO Purpose Continuity of Care Document - 01-03-2008 through 2016 Problems Code Diagnosis DOS Provider Status M542 CERVICALGIA 11-15-2016 [facility] I10 ESSENTIAL 08-03-2016 [facility] HYPERTENSIO INC N J209 ACUTE 08-03-2016 [facility] BRONCHITIS [facility] UNSPECIFIED INC T5234ZX LACERATION 08-03-2016 [facility] W/O FOREIGN [facility] BODY SCALP INC INITIAL ENC Z720 TOBACCO USE 08-03-2016 [facility] INC J68821 UNSPECIFIED 07-20-2016 [facility]MA [facility] WITH ACUTE HOSPITAL P EXACERBATIO N L41843 PAIN IN 06-23-2016 [facility] RIGHT UPPER [facility] ARM INC M436 TORTICOLLIS 06-07-2016 [facility] INC Z1231 ENCOUNTER 06-05-2016 [facility] SCREENING [facility] MAMMO MALIG INC NEOPLASM BREAST R748 ABNORMAL 04-11-2016 [facility] LEVELS OF [facility] OTHER SERUM INC ENZYMES K37 UNSPECIFIED 04-02-2016 [facility] S M5412 RADICULOPAT 01-05-2016 [facility] CERVICAL [facility] INTERNAL MED M545 LOW BACK 08-03-2015 [facility] [place] PAIN [facility] PLC G4733 OBSTRUCTIVE 07-02-2015 [facility]EP [facility] AP[facility]A ADULT INTERNAL PEDIATRIC MED G629 POLYNEUROPA 07-02-2015 [facility] [place] UNSPECIFIED INTERNAL MED M56504 OTHER LONG 07-02-2015 [facility] TERM [facility] CURRENT INC DRUG THERAPY 41009 DEGEN 05-27-2015 [facility] [place] LUMBAR/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 7242 LUMBAGO 05-13-2015 [facility] [place] [facility] 4019 UNSPECIFIED 03-05-2015 [facility] ESSENTIAL [facility] HYPERTENSIO INC N 8470 NECK SPRAIN 03-05-2015 [facility] AND STRAIN [facility] INC 27386 OTHER 03-02-2015 [facility] NONSPECIFIC [facility] FINDINGS INC EXAMINATION OF BLOOD 5849 ACUTE 02-27-2015 [facility] KIDNEY [facility] FAILURE INC UNSPECIFIED V7612 OTHER 02-25-2015 [facility] SCREENING [facility] MAMMOGRAM INC 12621 ASTHMA, 02-24-2015 [facility] UNSPECIFIED [facility] , INC UNSPECIFIED STATUS 42781 OSTEOARTHRO 02-06-2015 [facility] S INVLV MX [facility] SITES BUT INC NOT SPEC GEN 7213 LUMBOSACRAL 02-06-2015 [facility] SPONDYLOSIS INC WITHOUT MYELOPATHY V180 FAMILY 02-06-2015 [facility] HISTORY OF [facility] DIABETES INC MELLITUS V810 SCREENING 02-06-2015 [facility] FOR [facility] ISCHEMIC INC HEART DISEASE 94680 PAIN IN 02-03-2015 [facility], [facility] LOWER LEG INC 7231 CERVICALGIA 02-03-2015 [facility] INC 486 PNEUMONIA, 01-03-2015 [facility] ORGANISM [facility] UNSPECIFIED HOSPITAL P 30176 OBSTRUCTIVE 01-03-2015 [facility] CHRONIC [facility] BRONCHITIS HOSPITAL P WITH EXACERBATIO N 7224 DEGENERATIO 01-03-2015 [facility] N OF [facility] CERVICAL [facility] P INTERVERTEB RAL DISC 34817 DISPLCMT 12-21-2014 KARYN NOGUEIRA LUMBAR INTERVERT DISC W/O MYELOPATHY 7244 THORACIC/KENNETH 12-21-2014 [facility] SCHAEFERCRAL NEURITIS/RA DICULITIS UNSPEC 18324 DIAB W/O 07-04-2013 [facility] COMP TYPE [facility] II/UNS NOT INC STATED UNCNTRL 2720 PURE 04-29-2013 [facility] HYPERCHOLES [place]V 19226 OBSTRUCTIVE 04-29-2013 [facility] SLEEP APNEA CONSULTING SRV 0923 AORTIC 04-29-2013 [facility] VALVE DISORDERS CONSULTING SRV 69713 SHORTNESS 04-29-2013 [facility] GRICELDA OF BREATH CONSULTING SRV 54626 PRECORDIAL 04-15-2013 [facility] 7823 EDEMA 03-28-2013 [facility] INC 2722 MIXED 02-13-2013 [facility] HYPERLIPIDE [place] CONSULTING SRV 4011 ESSENTIAL 02-13-2013 [facility] HYPERTENSIO N, BENIGN CONSULTING SRV 1951 PALPITATION 02-13-2013 [facility] Nelson MD CONSULTING SRV 65105 OTHER 01-18-2013 [facility] 74471 OTHER 01-18-2013 [facility] 7831 ABNORMAL 01-18-2013 [facility] 25712 OTHER 01-18-2013 [facility] DYSPNEA AND [facility] RESPIRATORY ABNORMALITI ES 5952 OTHER 12-20-2012 [facility] CY[facility]ED 5951 CHRONIC 11-29-2012 [facility] INTERSTITIA [facility] L CYSTITIS INC 5982 POSTOPERATI 11-29-2012 [facility] VE URETHRAL [place] STRICTURE ADULT & PED 5989 UNSPECIFIED 11-29-2012 [facility] URETHRAL [facility] STRICTURE INC V5869 LONG-TERM 11-29-2012 [facility] (CURRENT) [facility] USE OF INC OTHER MEDICATIONS 6258 OTH SPEC 11-20-2012 [facility] SYMPTOM [facility] ASSOC INC W/FEMALE GENITAL ORGANS 74287 URETHRAL 11-15-2012 [facility] STRICTURE [place] DUE TO ADULT & PED UNSPECIFIED INFECTION 24198 URGE 11-15-2012 [facility] INCONTINENC [place] E ADULT & PED 56230 INF DUE OTH 10-26-2012 [facility] GM-NEGATIVE HOSPITAL ORGANISMS CCE & UNS SITE 5990 URINARY 10-26-2012 [facility] [place] TRACT [facility] SITE NOT SPECIFIED 06580 UNSPECIFIED 10-26-2012 [facility] [place] VAGINITIS [facility] VULVOVAGINI TIS 10796 ABDOMINAL 10-26-2012 [facility] PAIN, LEFT [facility] QUADRANT 7919 OTHER 10-26-2012 [facility] [place] NONSPECIFIC [facility] EXAMINATION OF URINE [...] [facility] PNEUMONITIS 00371 INCOMPLETE 06-27-2012 [facility] [place] EMPTYING ADULT & PED 2724 OTHER AND 06-20-2012 [facility] [place] UNSPECIFIED [facility] HYPERLIPIDE [place] 3558 UNSPECIFIED 06-20-2012 [facility] 50491 RECTOCELE 06-20-2012 [facility] MENTION OF HOSPITAL UTERINE PROLAPSE 6256 FEMALE 06-20-2012 [facility] [place] STRESS [facility] INCONTINENC HOSPITAL E 84243 UNSPECIFIED 06-20-2012 [facility] [place] SLEEP [facility] 4439 UNSPECIFIED 06-12-2012 [facility] VASCULAR [facility]OSPITA DISEASE 4549 ASYMPTOMATI 05-24-2012 [facility] PS 7840 HEADACHE 05-15-2012 [facility] 8489 UNSPECIFIED 05-15-2012 [facility] [place] SITE OF [facility] SPRAIN AND HOSPITAL STRAIN 9248 CONTUSION 05-15-2012 [facility] MULTIPLE [facility] SITES [facility] 54180 PAIN IN 05-04-2012 [facility] ANKLE AND INC FOOT 65618 PAIN IN 03-27-2012 [facility] UPPER ARM INC 2449 UNSPECIFIED 02-13-2012 [facility] HYPOTHYROID ISM 28892 ESOPHAGEAL 02-13-2012 [facility] 56471 BARRETTS 02-13-2012 [facility] 5533 DIAPHRAGMAT 02-13-2012 [facility] W/O HOSPITAL MENTION OBSTRUCTION /GANGREN V0382 NEED PROPH 02-13-2012 [facility] AGAINST STREP PNEUMONE V7281 PRE-OPERATI 02-12-2012 [place] [facility]AS[facility] LAR EXAMINATION 00389 UNS 11-08-2011 [facility] GASTRITIS&G [facility] ASTRODUODIT INC IS W/O MENTION HEMORR 70984 DIAB 06-06-2011 [facility] W/HYPEROSMO STORE LARITY TYPE II/UNS TYPE UNCNTRL 15628 OTHER 06-06-2011 [facility] 70555 OSTEOARTHRO 03-23-2011 [facility] UNSPEC HOME WHETHER MEDICAL GEN/LOC EQUIPME UNSPEC SITE V1254 PERSONAL HX 03-21-2011 [facility] TIA & CI [facility] W/O INC RESIDUAL DEFICITS 98002 DYSFNCT 03-08-2011 [facility] W/SLEEP HOSPITAL STGES/AROUS AL FRM SLEEP V8533 BODY MASS 03-08-2011 [facility] 33.0-33.9 HOSPITAL ADULT 23885 HYPOXEMIA 02-25-2011 [facility] V8532 BODY MASS 02-25-2011 [facility] 32.0-32.9 HOSPITAL ADULT 64600 ABDOMINAL 08-10-2010 [place] [facility] EPIGASTRIC [facility] 3544 CAUSALGIA 07-14-2010 [facility] OF UPPER [facility] LIMB INC 99747 PRIMARY 07-14-2010 [facility] FOCAL [facility] HYPERHIDROS INC IS V571 OTHER 07-14-2010 [facility] PHYSICAL [facility] THERAPY INC 52261 ABDOMINAL 07-06-2010 [place] [facility] GENERALIZED [facility] V7189 OBSERVATION 06-28-2009 [facility] SPECIFIED SUSPECTED CONDITIONS 3542 LESION OF 06-14-2009 [place] [facility] UL[facility] NERVE SERV [facility] 52334 PAIN IN 06-14-2009 [place] [facility] FOREARM [facility] 75183 CLOSED 05-31-2009 [facility] [place] FRACTURE OF ORTHOPAEDIC NAVICULAR S PLC BONE OF WRIST 00518 CLOSED 05-31-2009 [facility] FRACTURE METACARPAL BONE SITE UNSPECIFIED 12077 UNSPECIFIED 05-25-2009 [facility] 04350 NAUSEA 05-25-2009 [facility] 80222 CLOSED 04-30-2009 [facility] FRACTURE OF [facility] INC UNSPECIFIED PART OF RADIUS 90575 UNSPECIFIED 04-20-2009 ALFRED RAINEY MD ARTHROPATHY PSC , FOREARM 77242 PAIN IN 04-12-2009 [place] [facility] 94426 PAIN IN 04-12-2009 [place] [facility] 8471 THORACIC 02-08-2009 [facility] 3531 LUMBOSACRAL 12-10-2008 [facility] PLEXUS [facility] LESIONS INC 4660 ACUTE 08-10-2008 [facility] BRONCHITIS [facility] INC 5110 PLEURISY 08-10-2008 [facility] WITHOUT [facility] MENTION INC EFFUS/CURRE NT TB 7862 COUGH 08-10-2008 [facility] 27700 NAUSEA WITH 05-14-2008 [place] VOMITING [facility] 5759 UNSPECIFIED 03-13-2008 [place] DISORDER MEDICAL OF IMAGING GALLBLADDER ASSOCIATES 75377 ABDOMINAL 03-13-2008 [place] PAIN, MEDICAL UNSPECIFIED IMAGING SITE ASSOCIATES Medications [...] 4- 3- 00 SI 09 LD ve IN 58 [...] Procedure DOS Code [place] [address] [facility] SPINAL 7 N N CANAL COMMUNTIY COMMUNTIY [facility] HOSPITA W/O CONTRAST MATRL RADIOLOGI 04383 [facility] EXAM 6 [facility] CHEST 2 INC INC VIEWS FRONTAL&L ATERAL BLOOD 70649 [facility] COUNT 6 [facility] COMPLETE INC INC AUTO&AUTO DIFRNTL WBC IAADI 11238 [facility] INFLUENZA 6 [facility] B VIRUS INC INC IAADI 90059 [facility] INFFLUENZ 6 [facility] [place] [address] [facility] HEAD/BRAI 6 [facility] N W/O INC INC CONTRAST MATERIAL COMPREHEN 47472 [facility] SIVE 6 [facility] METABOLIC INC INC PANEL SIMPLE 89454 [facility] REPAIR 6 [facility] SCALP/NEC INC INC K/AX/ASHLEY T/TRUNK 2.5CM/< ECG 06934 [facility] DEAN ROUTINE 6 [facility] W/LEAST P 12 LDS I&R ONLY CREATINE 08608 [facility] KINASE MB 6 [facility] [place] [address] [facility] INFUSION 6 [facility] THERAPY/P INC INC ROPHYLAXI S /DX 1ST TO 1 HR THERAPEUT 74274 [facility] IC 6 [facility] INJECTION INC INC IV PUSH EACH NEW DRUG COMPREHEN 62772 [facility] SIVE 6 [facility] METABOLIC INC INC PANEL ECG 16182 [facility] ROUTINE 6 [facility] ECG INC INC W/LEAST 12 LDS TRCG ONLY W/O I&R NATRIURET 94492 [facility] IC 6 [facility] PEPTIDE INC INC PRESSURIZ 16288 [facility] ED/NONPRE 6 [facility] SSURIZED INC INC INHALATIO N TREATMENT C-REACTIV 82656 [facility] E PROTEIN 6 [facility] INC INC RADIOLOGI 81992 C[facility] C 6 [facility] EXAMINATI INC INC ON CHEST SINGLE VIEW FRONTAL CREATINE 50768 [facility] KINASE 6 [facility] TOTAL INC INC IAADI 85074 [facility] [place] INFFLUENZ 6 [facility] A A VIRUS INC INC IAADI 66390 [facility] INFLUENZA 6 [facility] B VIRUS INC INC FIBRIN 16068 [facility] DGRADJ 6 [facility] PRODUCTS INC INC D-DIMER QUAL/SEMI LENO SEDIMENTA 93293 [facility] TION RATE 6 [facility] RBC INC INC NON-AUTOM ATED BLOOD 46004 [facility] COUNT 6 [facility] COMPLETE INC INC AUTO&[place] [address] [facility] TROPONIN 6 [facility] [place] [address] [facility] TROPONIN 6 [facility] QUANTITAT INC INC [place] BLOOD 22421 [facility] COUNT 6 [facility] COMPLETE INC INC AUTO&AUTO DIFRNTL WBC THER 16153 [facility] PROPH/DX 6 [facility] NJX IV INC INC PUSH SINGLE/1S T SBST/DRUG RADIOLOGI 56843 [facility] Camp[facility] EXAM 6 [facility] CHEST 2 INC INC VIEWS FRONTAL&L ATERAL NATRIURET 69333 [facility] IC 6 [facility] PEPTIDE INC INC FIBRIN 96728 [facility] DGRADJ 6 [facility]OS[facility] PRODUCTS INC INC D-DIMER QUAL/SEMI LENO CREATINE 27335 [facility] KINASE 6 [facility] TOTAL INC INC ECG 65549 [facility] ROUTINE 6 [facility] ECG INC INC W/LEAST 12 LDS TRCG ONLY W/O I&R COMPREHEN 11542 [facility] SIVE 6 [facility] METABOLIC INC INC PANEL CREATINE 34299 [facility] KINASE MB 6 [facility] FRACTION INC INC ONLY THERAPEUT 66783 [facility] IC 6 [facility] INJECTION INC INC IV PUSH EACH NEW DRUG INJECTION J2405 [facility]K 6 [facility] ONDANSETR INC INC ON HCL PER 1 MG SCREENING G0202 [facility]K 6 [facility] MAMMOGRAP INC INC HY ELIZABETH INCL CAD WHEN PERFORMD COMPUTER- 95038 [facility] AIDED 6 [facility] [place] [address] [facility] ABDOMINAL 6 [facility] REAL INC INC TIME W/IMAGE LIMITED BLOOD 05323 [facility] COUNT 6 [facility] COMPLETE INC INC AUTO&AUTO DIFRNTL [facility]BC [facility] G0378 [facility] OBSERVATI 6 [facility] ON INC INC SERVICE PER HOUR COLLECTIO 47749 [facility] N VENOUS 6 [facility] BLOOD INC INC VENIPUNCT URE BASIC 52029 [facility] METABOLIC 6 [facility] PANEL INC INC CALCIUM TOTAL TX PROC G0238 [facility] IMPRV 6 [facility] RESP INC INC FUNCT NOT G0237 FCE-FCE 15MIN PRESSURIZ 85965 [facility] ED/NONPRE 6 [facility] SSURIZED INC INC INHALATIO N TREATMENT NONINVASI 67588 [facility] VE 6 [facility] EAR/PULSE INC INC OXIMETRY SINGLE DETER INJECTION J2405 [facility]K 6 [facility] ONDANSETR INC INC ON HCL PER 1 MG INJECTION J2405 [facility]K 6 [facility] ONDANSETR INC INC ON HCL PER 1 MG PRESSURIZ 31120 [facility] ED/NONPRE 6 [facility] SSURIZED INC INC INHALATIO N TREATMENT LAPAROSCO 23487 [facility] PIC 6 [facility] APPENDECT INC INC EDELMIRA LEVEL III 87787 [facility] SURG 6 [facility] PATHOLOGY INC INC GROSS&LOPEZ ROSCOPIC EXAM COMPREHEN 87236 [facility] SIVE 6 [facility] METABOLIC INC INC PANEL LOCM Q9967 [facility] 300-399 6 [facility] MG/ML INC INC IODINE CONCENTRA TION PER ML INJECTION J2710 [facility]K 6 [facility] NEOSTIGMI INC INC NE METHYLSUL FATE UP TO 0.5 MG INITIAL 79619 [facility] GERRY SORIANO OBSERVATI 6 PHYSICIAN ON S GROUP CARE/DAY 30 MINUTES INJECTION J0330 [facility]K 6 [facility] SUCCINYLC INC INC HOLINE CHLORIDE UP TO 20 MG HOSPITAL G0378 [facility] OBSERVATI 6 [facility] ON INC INC SERVICE PER HOUR ECG 25367 [facility] ROUTINE 6 [facility] ECG INC INC W/LEAST 12 LDS TRCG ONLY W/O I&R BLOOD 64546 [facility] COUNT 6 [facility] COMPLETE INC INC AUTO&AUTO DIFRNTL WBC GONADOTRO 40907 [facility] PIN 6 [facility] [place] [address] [facility] ABDOMEN & 6 [facility] PELVIS INC INC W/CONTRAS T MATERIAL THER 06294 [facility] PROPH/DX 6 [facility] NJX IV INC INC PUSH SINGLE/1S T SBST/DRUG URNLS DIP 82844 [facility]K 6 [facility] STICK/TAB INC INC LET REAGENT AUTO MICROSCOP Y HEMOGLOBI 52273 [facility] N 5 [facility] GLYCOSYLA INC INC TERESSA A1C LIPID 44317 [facility] PANEL 5 [facility] INC INC BLOOD 66779 [facility] COUNT 5 [facility] COMPLETE INC INC AUTO&AUTO DIFRNTL WBC CYANOCOBA 71222 [facility] SONG 5 [facility] VITAMIN INC INC B-12 COLLECTIO 83360 [facility] N VENOUS 5 [facility] BLOOD INC INC VENIPUNCT URE COMPREHEN 54690 [facility] SIVE 5 [facility] [place] [address] [facility] THYROID 5 [facility] STIMULATI INC INC NG HORMONE TSH SYPHILIS 35910 [facility] TEST 5 [facility] NON-TREPO INC INC NEMAL ANTIBODY QUAL RADEX 19871 [facility] SPINE 5 [facility] CERVICAL INC INC 2 OR 3 VIEWS THERAPEUT 45702 [facility] IC 5 [facility] PROPHYLAC INC INC TIC/DX INJECTION SUBQ/IM BASIC 46914 [facility] METABOLIC 5 [facility] PANEL INC INC CALCIUM TOTAL COLLECTIO 62831 [facility] N VENOUS 5 [facility] BLOOD INC INC VENIPUNCT URE BASIC 69603 [facility] METABOLIC 5 [facility] PANEL INC INC CALCIUM TOTAL COMPUTER- 47284 [facility] AIDED 5 [facility] DETECTION INC INC SCREENING MAMMOGRAP HY SCREENING G0202 [facility]K 5 [facility] MAMMOGRAP INC INC HY [place] [address] [facility] INFUSION 5 [facility] THERAPY/P INC INC ROPHYLAXI S /DX 1ST TO 1 HR URNLS DIP 20215 [facility] 5 [facility] STICK/TAB INC INC LET REAGENT AUTO MICROSCOP Y RADIOLOGI 64375 [facility] C 5 [facility] EXAMINATI INC INC ON PELVIS 1/2 VIEWS THERAPEUT 02457 [facility] IC 5 [facility] PROPHYLAC INC INC TIC/DX INJECTION SUBQ/IM RADIOLOGI 04014 [facility] C [facility] EXAMINATI INC INC ON FEMUR 2 VIEWS RADEX 73475 [facility] SPINE 5 [facility] LUMBOSACR INC INC AL MINIMUM 4 VIEWS INJECTION J1040 [facility] METHYLPRE INC INC DNISOLONE ACETATE 80 MG INJECTION J2405 [facility] ONDANSETR INC INC ON HCL PER 1 MG RADIOLOGI 74039 [facility] C EXAM [facility] KNEE INC INC COMPLETE 4/MORE VIEWS RADEX 37670 [facility] SPINE 5 [facility] CERVICAL INC INC 4 OR 5 VIEWS PRESSURIZ 11031 [facility] ED/NONPRE 5 [facility] SSURIZED INC INC INHALATIO N TREATMENT NONINVASI 80073 [facility] VE [facility] EAR/PULSE INC INC OXIMETRY SINGLE [facility] G0378 [facility] OBSERVATI 5 [facility] ON INC INC SERVICE PER HOUR INJECTION J0456 [facility] AZITHROMY INC INC FRANCHESCA 500 MG BASIC 70674 [facility] METABOLIC 5 [facility] PANEL INC INC [facility] G0378 [facility] OBSERVATI 5 [facility] ON INC INC SERVICE PER HOUR NONINVASI 47327 [facility] VE 5 [facility] EAR/PULSE INC INC OXIMETRY SINGLE DETER PRESSURIZ 95045 [facility] ED/NONPRE 5 [facility] SSURIZED INC INC INHALATIO N TREATMENT SMR PRIM 66855 [facility] SRC 5 [facility] GRAM/GIEM INC INC SA STAIN BCT FUNGI/LUIS L BLOOD 16417 [facility] COUNT [facility] COMPLETE INC INC AUTO&AUTO DIFRNTL WBC CUL BACT 56679 [facility] XCPT 5 [facility] URINE INC INC BLOOD/STO OL AEROBIC ISOL COLLECTIO 00560 [facility] N VENOUS 5 [facility] BLOOD INC INC VENIPUNCT URE CREATINE 13233 [facility] KINASE 5 [facility] TOTAL INC INC BLOOD 39075 [facility] COUNT 5 [facility] COMPLETE INC INC AUTO&[place] [address] [facility] TROPONIN 5 [facility] QUANTITAT INC INC [place] RADIOLOGI 81601 [facility] C EXAM 5 [facility] CHEST 2 INC INC VIEWS FRONTAL&L ATERAL CULTURE 70093 [facility] BACTERIAL 5 [facility] BLOOD INC INC AEROBIC W/ID ISOLATES PRESSURIZ 90072 [facility] ED/NONPRE 5 [facility] SSURIZED [place] [address] [facility] INFUSION 5 [facility] THERAPY/P INC INC ROPHYLAXI S /DX 1ST TO 1 HR CREATINE 27573 [facility] KINASE MB 5 [facility] FRACTION INC INC ONLY ECG 74824 [facility] ROUTINE 5 [facility] ECG INC INC W/LEAST 12 LDS TRCG ONLY W/[place] [address] [facility] INFUSION 5 [facility] THER INC INC PROPH ADDL SEQUENTIA L TO 1 HR THERAPEUT 11501 [facility] IC [facility] INJECTION INC INC IV PUSH EACH NEW DRUG COMPREHEN 16828 [facility] SIVE 5 [facility] METABOLIC INC INC [facility] G0378 [facility] P[facility] OBSERVATI 5 [facility] ON INC INC SERVICE PER HOUR ECG 81413 [facility] DEAN ROUTINE [address] [facility] W/LEAST P 12 LDS I&R ONLY INJECTION J0456 [facility] AZITHROMY INC INC FRANCHESCA 500 MG INJECTION J2405 [facility] ONDANSETR INC INC ON HCL PER 1 MG COLLECTIO 78276 [facility] N VENOUS 5 [facility] BLOOD INC INC VENIPUNCT URE APPL 21505 [facility] MODALITY 4 [facility] 1/> AREAS INC INC ELEC STIMJ EA 15 MIN URNLS DIP 59490 [facility] STICK/TAB INC INC LET REAGENT AUTO MICROSCOP Y THERAPEUT 01397 [facility] P[facility] IC 3 [facility] HOSP PROPHYLAC INC INC TIC/DX INJECTION SUBQ/IM 3D 35828 [facility] RENDERING 3 [facility] W/INTERP INC INC & POSTPROCE SS SUPERVISI ON HEMOGLOBI 29519 [facility] N 3 [facility] GLYCOSYLA INC INC TERESSA A1C MRI 57023 [facility] SPINAL 3 [facility] CANAL INC INC LUMBAR W/O CONTRAST MATERIAL COLLECTIO 43418 [facility] N VENOUS 3 [facility] HOSP BLOOD INC INC VENIPUNCT URE ECHO 98642 [facility] M[facility] MADISON BRET TTHRC R-T 3 MD 2D W/WO CONSULTIN M-MODE G SRV REST&STRS CONT ECG COLLECTIO 03843 CHICA COTO N VENOUS 3 [facility] VENIPUNCT URE FIBRIN 99151 CHICA COTO DGRADJ 3 [facility] D-DIMER QUANTITAT [place] ECHO 94977 [facility] PEKC TTHRC R-T 3 [facility] HOSP 2D INC INC W/WOM-MOD E COMPL SPEC&COLR D SLEEP STD 32804 CHICA COTO REC VNTJ 3 [facility] ECG/HRT RATE&O2 ATTN XTRNL ECG 38606 BRET MADISON MADISON BRET & 48 HR 3 MD RECORDING CONSULTIN G SRV RADIOLOGI 87831 CHICA COTO C EXAM [address] VIEWS FRONTAL&L ATERAL ECG 39305 BRET MADISON MADISON BRET ROUTINE 3 MD ECG CONSULTIN W/LEAST G SRV 12 LDS W/[place] [address] CISCOAUTUMN PECK INFUSION 3 [facility] HOSP THERAPY/P INC INC ROPHYLAXI S /DX 1ST TO 1 HR THERAPEUT 62588 [facility] P[facility]K IC 3 [facility] HOSP INJECTION INC [place] [address] [facility] P[facility]K INFUSION 3 [facility] HOSP THERAPY INC INC PROPHYLAX IS/DX EA HOUR INJECTION J2405 [facility] PECK 3 [facility] HOSP ONDANSETR INC INC ON HCL PER 1 MG DILAT 78015 [facility] FEMALE 3 [facility] HOSP URETHRA INC INC GENERAL/C NDJ SPINAL ANES CYSTO 25551 [facility] CALIBRATI 3 IDAHO DERRICK ON DILAT ADULT & URTL PED STRIX/LORNA NOSIS CYSTOURET 49606 [facility] HROSCOPY 3 CONTRERAS DERRICK W/DIL ADULT & BLADDER PED GENERAL ANESTH DILATION 586 [facility] OF 3 [facility] URETHRA INC INC URNLS DIP 15659 [facility] P[facility]K 3 [facility] STICK/TAB INC INC LET REAGENT AUTO MICROSCOP Y BLOOD 90919 [facility] COUNT 3 [facility] COMPLETE INC INC AUTO&AUTO DIFRNTL WBC COLLECTIO 55879 [facility] N VENOUS 3 [facility] BLOOD INC INC VENIPUNCT URE ECG 59952 [facility] P[facility]K ROUTINE 3 [facility] HOS[facility] ECG INC INC W/LEAST 12 LDS TRCG ONLY W/O I&R COMPREHEN 13918 [facility] P[facility] SIVE 3 [facility] HOSP METABOLIC INC INC PANEL COMPREHEN 91400 CHICA GOODMANON SIVE 3 [facility] [place] [address] CHICA COTO INFUSION 3 [facility] THERAPY/P HOSPITAL HOSPITAL ROPHYLAXI S /DX 1ST TO 1 HR PRESSURIZ 37292 CHICA COTO ED/NONPRE 3 [facility] INHALATIO N TREATMENT THERAPEUT 19896 CHICA COTO IC 3 [facility] INJECTION [facility] IV PUSH EACH NEW DRUG BLOOD 73613 CHICA GOODMANON COUNT 3 [facility] AUTO&[place] [address] CHICA GOODMANON ABDOMEN & 3 [facility] W/CONTRAS T MATERIAL URNLS DIP 53425 [place] 3 [facility] STICK/TAB [facility] LET REAGENT AUTO MICROSCOP Y RADIOLOGI 51268 CHICA GOODMANON C EXAM 3 [facility] CHEST [address] [place] [address] HOSPITAL VIEWS FRONTAL&L ATERAL CULTURE 14778 CHICA COTO BACTERIAL 3 [facility] QUANTTATI VE COLONY COUNT URINE SMR PRIM 13412 CHICA GOODMANON SRC WET 3 [facility] NFCT AGT TISS ADI 79745 CHICA COTO SLIDE 3 [facility] SKN/HR/NL S FNGI/ECTO PARASIT THERAPEUT 81842 CHICA COTO IC 3 [facility] TIC/DX INJECTION SUBQ/[place] [address] CHICA COTO LIPASE 3 [facility] NERVE 85578 [facility] 3 JAL N STUDIES NEUROSCIE 7-8 NCES CENT STUDIES NEEDLE 55256 [place] JENNIFER EMG EA 3 JAL EXTREMTY [...] EQUIPME EQUIPME ARWAY PRESS DEVICE EA THER 97423 [facility] PROPH/DX 2 [facility] NJX IV INC INC PUSH SINGLE/1S T SBST/DRUG 3D 79108 [facility] RENDERING 2 [facility] INC INC W/INTERP& [place] [address] [facility] P[facility] HEAD/BRAI 2 [facility] N W/O INC INC CONTRAST MATERIAL 3D 30011 [facility] RENDERING 2 [facility] W/INTERP INC INC & [place] [address] [facility] CERVICAL 2 [facility] SPINE W/O INC INC CONTRAST MATERIAL MOE 71345 [facility] POST-VOID 2 IDAHO DERRICK ING ADULT & RESIDUAL PED URINE&/BL ADDER CAP ECG 35507 CHICA COTO ROUTINE 2 [facility] W/LEAST 12 LDS TRCG ONLY W/O I&R SLING 20464 CHICA GOODMAN OPERATION 2 [facility] INCONTINE NCE PRESSURIZ 97515 CHICA COTO ED/NONPRE 2 [facility] INHALATIO N TREATMENT OTHER 5732 CHICA COTO CYSTOSCOP 2 [facility] OTHER 5979 CHICA COTO REPAIR OF 2 [facility] STRESS INCONTINE ILE RADIOLOGI 71109 [facility] C 2 [facility] EXAMINATI INC INC ON FOOT 2 VIEWS RADEX 86138 [facility] CALCANEUS 2 [facility] MINIMUM INC INC 2 [place] NJX 42192 [facility] DX/THER 2 N N SBST [facility] EPIDURAL/ HOSPITA HOSPITA SUBARACH LUMBAR/SA CRAL FLUOR 73417 [facility] NEEDLE/CA 2 N N TH [facility] SPINE/PAR HOSPITA HOSPITA ASPINAL DX/THER ADDON INJECTION J2001 [facility] 2 N N LIDOCAINE [facility] HCL HOSPITA HOSPITA INTRAVENO US INFUS 10 MG INJECTION J2250 [facility] 2 N N MIDAZOLAM [facility] HCL PER HOSPITA HOSPITA 1 MG INJECTION J1100 [facility] 2 N N DEXAMETHO [facility] SONE HOSPITA HOSPITA SODIUM PHOSPHATE 1 MG INJECTION 0392 [facility] OF OTHER 2 N N AGENT [facility] INTO HOSPITA HOSPITA SPINAL CANAL INJECTION 9923 [facility] OF 2 N N STEROID [facility] HOSPITA HOSPITA RADEX 83750 CHICA COTO ANKLE 2 [facility] MINIM[address] [place] [address] CHICA COTO HEAD/BRAI 2 [facility] N W/O HOSPITAL HOSPITAL CONTRAST MATERIAL RADEX 62090 MAXINEAUTUMN CHICA SHOULDER 2 [facility] MINIMUM 2 VIEWS RADIOLOGI 71942 [facility] C 2 [facility] EXAMINATI INC INC ON KNEE 3 VIEWS THERAPEUT 03589 CHICA COTO IC 2 [facility] TIC/DX INJECTION SUBQ/IM RADEX 96829 [facility] FOOT 2 [facility] COMPLETE INC INC MINIMUM 3 VIEWS THERAPEUT 85846 [facility] P[facility] IC 2 [facility] HOSP PROPHYLAC INC INC TIC/DX INJECTION [...] W/POS EQUIPME EQUIPME ARWAY PRESSURE DEVICE RADEX 61500 [facility] P[facility] ELBOW 2 [facility] COMPLETE INC INC MINIMUM 3 VIEWS PRESSURIZ [address] [facility] ED/NONPRE 2 Y Y SSURIZED [facility] INHALATIO N TREATMENT PPSV23 [address] [facility] VACCINE 2 2 Y Y YRS OR HOSPITAL HOSPITAL OLDER FOR SUBQ/IM USE INJECTION J3010 [facility] FENTANYL 2 Y Y CITRATE [facility] 0.[address] [facility] NORMAL 2 Y Y SALINE [facility] SOLUTION 1000 CC INJECTION J11[address] [facility] 2 Y Y HYDROMORP [facility] OFELIA UP TO [address] IN[address] [facility] HEPARIN 2 Y Y SODIUM [facility] PER 1000 UNITS INTRDUCR/ C1894 [facility] SHEATH 2 Y Y NOT GUID [facility] INTRACARD EP NON-LASR RINGERS J7120 [facility] LACTATE 2 Y Y INFUSION [facility] UP TO [address] IN[address] J[address] [facility] 2 Y Y SUCCINYLC [facility] HOLINE CHLORIDE UP TO 20 MG LAPS SURG [address] [facility] 2 Y Y ESOPG/GST [facility] R FUNDOPLAS TY LAP PROC [address] [facility] CREAT 2 Y Y ESOPHAGOG [facility] ASTR SPHNCTRIC COMPETNCE INJECTION J2550 [facility] 2 Y Y [facility] INE HCL UP TO 50 MG FULL FACE A7030 FELICIA DUARTE MASK 2 HOME HOME USED MEDICAL MEDICAL W/POS EQUIPME EQUIPME ARWAY PRESS DEVICE EA TUBING A7037 FELICIA DUARTE USED WITH 2 HOME HOME POSITIVE MEDICAL MEDICAL AIRWAY EQUIPME EQUIPME PRESSURE DEVICE NEBULIZER E0570 FELICIA DURATE WITH 2 HOME HOME COMPRESSO MEDICAL MEDICAL R EQUIPME EQUIPME WALKING L4386 FELICIA DUARTE BOOT 2 HOME HOME NON-PNEUM MEDICAL MEDICAL ATIC EQUIPME EQUIPME PREFAB CUSTOM FIT CONTINUOU E0601 FELICIA DUARTE S 2 HOME HOME POSITIVE MEDICAL MEDICAL AIRWAY EQUIPME EQUIPME PRESSURE DEVICE COMPREHEN 35327 [facility] SIVE 2 [facility] [place] [address] [facility] THYROID 2 [facility] STIMULATI INC INC NG HORMONE TSH COLLECTIO 76002 [facility] N VENOUS 2 [facility] BLOOD INC INC VENIPUNCT URE PROTEIN 88989 [facility] ELECTROPH 2 [facility] ORETIC INC INC FRACTJ&[place] [address] [facility] THIAMINE- 2 [facility] VITAMIN INC INC B-1 3D 98537 [facility] RENDERING 2 [facility] INC INC W/INTERP& POSTPROC DIFF WORK STATION CYANOCOBA 04929 [facility] SONG 2 [facility] VITAMIN INC INC B-12 [place] [address] [facility] THYROXINE 2 [facility] [place] [address] [facility] BLOOD/URI 2 [facility] C ACID INC INC RHEUMATOI 89404 [facility] D FACTOR 2 [facility] QUANTITAT INC INC KEAGAN HEMOGLOBI 44496 [facility] N 2 [facility] GLYCOSYLA INC INC TERESSA A1C CT LOWER 85502 [facility] EXTREMITY 2 [facility] W/O INC INC CONTRAST MATERIAL BLOOD 96080 [facility] COUNT 2 [facility] COMPLETE INC INC AUTO&AUTO DIFRNTL WBC NEBULIZER E0570 FELICIA DUARTE WITH 2 HOME HOME COMPRESSO MEDICAL MEDICAL R EQUIPME EQUIPME CUL 16183 [facility] PRSMPTV 2 [facility] PTHGNC [place] [address] [facility] INFUSION 2 [facility] THERAPY INC [place] PROPHY[place]X IS/[place] [address] [facility] INFUSION 2 [facility] MEM [...] K0823 THE THE GRP 2 STD 1 rollApp STORE STORE CHAIR PT TO &=300 LBS CONTINUOU E0601 FELICIA DUARTE S 1 HOME HOME POSITIVE MEDICAL MEDICAL AIRWAY EQUIPME EQUIPME PRESSURE DEVICE CONTINUOU E0601 FELICIANAYANA DUARTE S 1 HOME HOME POSITIVE MEDICAL MEDICAL AIRWAY EQUIPME EQUIPME PRESSURE DEVICE LOCM Q9967 CHICA COTO [phone] 1 [facility] MG/ML [facility] IODINE CONCENTRA TION PER ML CT THORAX 61048 CHICA COTO 1 [facility] T MATERIAL NEBULIZER E0570 FELICIA DUARTE WITH 1 HOME HOME COMPRESSO MEDICAL MEDICAL R EQUIPME EQUIPME SLEEP STD 35157 CHICA COTO REC VNTJ 1 [facility] ECG/HRT RATE&O2 ATTN CONTINUOU E0601 FELICIA DUARTE S 1 HOME HOME POSITIVE MEDICAL MEDICAL AIRWAY EQUIPME EQUIPME PRESSURE DEVICE WALKER E0143 FELICIA DUARTE FOLDING 1 HOME HOME WHEELED MEDICAL MEDICAL ADJUSTABL EQUIPME EQUIPME E/FIXED HEIGHT PHYSICAL 60044 [facility] THERAPY 1 [facility] HOSP EVALUATIO INC INC N NEBULIZER E0570 FELICIANAYANA DUARTE WITH 1 HOME HOME COMPRESSO MEDICAL MEDICAL R EQUIPME EQUIPME POLYSOM 32157 CHICA COTO 6/>YRS 1 [facility] W/CPAP 4/> ADDL GAY ATTND HUMDIFIR E0562 [...] EQUIPME ARWAY PRESS DEVICE EA FILTER A7039 EFLICIA DUARTE NON 1 HOME HOME DISPBL MEDICAL MEDICAL USED EQUIPME EQUIPME W/POS ARWAY PRESS DEVICE FILTER A7038 FELICIA FELICIA DISPBL 1 HOME HOME USED MEDICAL MEDICAL W/POS EQUIPME EQUIPME ARWAY PRESSURE DEVICE POLYSOM 65125 CHICA COTO 6/>YRS 1 [facility] SLEEP 4/> HOSPITAL HOSPITAL ADDL GAY ATTND ECG 57763 [facility] P[facility] ROUTINE 1 [facility] HOSP ECG INC INC W/LEAST 12 LDS TRCG ONLY W/O I&R APPLICATI 12676 [facility] ON SHORT 0 [facility] HOSP ARM INC INC SPLINT FOREARM-H AND STATIC MRI 07262 [place] February SPINAL 9 MEDICAL CANAL SERV CERVICAL FOUNDATIO W/O CONTRAST MATRL NDL EMG [address] [facility] XTR W/WO 9 Y Y RELATED HOSPITAL [facility] PARASPINA L AREAS NRV CNDJ 09099 [facility] AMPLIT[facility] 9 Y Y & [facility] LATENCY EACH NERVE SENSORY NRV CNDJ 60295 [place] FEE, AMPLT&LAT 9 MEDICAL ISMAEL B ENCY EA SERV NRV MOTOR FOUNDATIO W/F-WAVE STD WRIST L3807 [employer] HAND 9 FINGR ORTHOS W/O JNT PREFAB CSTM FIT RADEX 83389 [facility] ABDOMEN 1 9 [facility] INC INC ANTEROPOS TERIOR VIEW CT UPPER 18175 [facility] EXTREMITY 9 [facility] W/O INC INC CONTRAST MATERIAL 3D 17976 [facility] RENDERING 9 [facility] INC INC W/INTERP& POSTPROC DIFF WORK STATION WRIST L3908 ALFRED ALFRED HAND 9 REDD RAINEY MD ORTHOSIS PSC PSC EXT CONTROL COCK-UP PREFAB RADEX 27704 CONTRERAS BULLARDCHER, ELBOW 9 MEDICAL CHUCK COMPLETE IMAGING MINIMUM 3 ASSOCIATE VIEWS S RADEX 51198 [facility] HAND 9 [facility] MINIMUM 3 INC INC VIEWS RADEX 58410 [facility] SHOULDER 9 [facility] COMPLETE INC INC MINIMUM 2 VIEWS RADEX 57902 CONTRERAS AYANA, HUMERUS 9 MEDICAL CHUCK MINIMUM 2 IMAGING VIEWS ASSOCIATE S RADEX 35100 CONTRERAS AYANA, FOREARM 2 9 MEDICAL CHUCK VIEWS IMAGING ASSOCIATE S RADEX 98902 [facility], WRIST 9 MEDICAL CHUCK COMPLETE IMAGING MINIMUM 3 ASSOCIATE VIEWS S RADIOLOGI 86503 CONTRERAS BULLARDCHER, C EXAM 8 MEDICAL CHUCK CHEST 2 IMAGING VIEWS ASSOCIATE FRONTAL&L S ATERAL BLOOD 11410 [facility] COUNT 8 [facility] COMPLETE INC INC AUTO&AUTO DIFRNTL WBC BASIC 09749 [facility] METABOLIC 8 [facility] PANEL INC INC CALCIUM TOTAL 3D 83600 CONTRERAS PIÑA, RENDERING 8 MEDICAL CHUCK IMAGING W/INTERP& ASSOCIATE POSTPROC S DIFF WORK STATION RADEX ABD 19803 CONTRERAS PIÑA, COMPL 8 MEDICAL CHUCK AQT ABD IMAGING W/S/E/D ASSOCIATE VIEWS [address] PELVIS 88332 CONTRERAS PIÑA, W/O 8 MEDICAL CHUCK [place] [address] CONTRERAS PIÑ[place], ABDOMEN 8 MEDICAL CHUCK W/O IMAGING CONTRAST ASSOCIATE MATERIAL S RADEX 06703 CONTRERAS PIÑA, FOOT 8 MEDICAL CHUCK COMPLETE IMAGING MINIMUM 3 ASSOCIATE VIEWS S RADEX 41881 CONTRERAS PIÑA, SPINE 8 MEDICAL CHUCK LUMBOSACR IMAGING AL ASSOCIATE MINIMUM 4 S VIEWS RADIOLOGI 30322 CONTRERAS PIÑA, C 8 MEDICAL CHUCK EXAMINATI IMAGING ON PELVIS ASSOCIATE 1/[address] [place] [address] CONTRERAS PIÑA, ABDOMEN 8 MEDICAL CHUCK W/CONTRAS IMAGING T ASSOCIATE MATERIAL S CT PELVIS 02987 CONTRERAS PIÑA, 8 MEDICAL CHUCK W/CONTRAS IMAGING T ASSOCIATE MATERIAL S 3D 29820 CONTRERAS PIÑA, RENDERING 8 MEDICAL CHUCK IMAGING W/INTERP& ASSOCIATE POSTPROC S DIFF WORK STATION HEPATBL 86767 CONTRERAS MONSERRAT HAWK SYS 8 MEDICAL VAMSHI [place] [address] CONTRERAS PIÑA, ABDOMINAL 8 MEDICAL CHUCK REAL IMAGING TIME ASSOCIATE W/IMAGE S LIMITED [place] ABD 14430 CONTRERAS PIÑA, COMPL 8 MEDICAL CHUCK AQT ABD IMAGING W/S/E/D ASSOCIATE VIEWS 1 S VIEW CH Encounters Encounter Start End Date Code Location Performer Type Date [facility] [place] [address] 7 N OUTPATIEN COMMUNTIY T HOSPITA EMERGENCY 18189 [facility] 6 6 [facility] DEPARTMEN INC T VISIT MODERATE SEVERITY HOSPITAL [facility] - 6 6 [facility] OUTPATIEN INC T EMERGENCY 13620 [facility] 6 6 [facility] DEPARTMEN INC T VISIT HIGH/URGE NT SEVERITY HOSPITAL [facility] - 6 6 [facility] 6 6 [facility] EMERGENCY 16618 [facility] 6 6 [facility] LIMITED/M [facility] C[facility] - 6 6 [facility] EMERGENCY 83777 [facility] 6 6 [facility] T VISIT MODERATE [facility]VERITY HOSPITAL CISCO - 6 6 [facility] - 6 6 [facility] T EMERGENCY 74322 [facility] 6 6 [facility] T VISIT [facility]IGH/URGE NT SEVERITY HOSPITAL [facility] - 6 6 [facility]EN [facility] T OFFICE 30381 [place] [facility] 6 6 [facility] VISIT INTERNAL 25 MED MINUTES OFFICE 04557 [facility] 5 5 [place] VISIT ORTHOPAED 15 [facility] MINUTES HOSPITAL [facility] - 5 5 [facility] OFF[facility] 43394 [place] [facility] OUT[facility] 5 5 [facility] T NEW 45 INTERNAL MINUTES MED OFFICE 83407 [facility] OUTPATI[facility] 5 5 [place] VIS[place] ORTHOPAED 15 [facility] MINUTES OFFICE 01509 [facility] OUTPATI[facility] 5 5 [place] VISIT ORTHOPAED 15 [facility] MINUTES [facility]OSPITAL [facility] - 5 5 [facility] EMERGENCY 91580 [facility] 5 5 [facility] T VISIT LOW/MODER SEVERITY HOSPITAL [facility] - 5 5 [facility] OUTPATIEN INC T HOSPITAL C[facility]CO - 5 5 [facility] 5 5 [facility] OUTPATIEN INC T HOSPITAL [facility] - 5 5 [facility] T EMERGENCY 20040 [facility] 5 5 [facility] DEPARTMEN INC T VISIT HIGH/URGE NT SEVERITY EMERGENCY 74716 [facility] 5 5 [facility] T VISIT MODERATE SEVERITY HOSPITAL CISCO - 5 5 [facility] - 5 5 [facility] T EMERGENCY 02217 [facility] DEPT 5 5 [facility] VISIT INC HIGH SEVERITY& THREAT [facility] - 5 5 [facility] OFFICE 83597 YINKAAR BUX BUX ANJ OUTPATIEN 5 5 MD T VISIT 10 MINUTES OFFICE 51047 KARYN BUX BUX ANJ OUTPATIEN 5 5 MD T NEW 20 MINUTES HOSPITAL [facility] - 4 4 [facility] 3 3 [facility] EMERGENCY 04360 [facility] 3 3 [facility] T VISIT MODERATE SEVERITY HOSPITAL CISCO - 3 3 [facility] OFFICE 24697 [facility] MADISON BRET OUTPATIEN 3 3 MD T VISIT CONSULTIN 25 G SRV MINUTES [facility] - 3 3 [facility] CISCO - 3 3 [facility] OFFICE 31926 BRET MADISON MADISON RBET OUTPATIEN 3 3 MD T VISIT CONSULTIN 25 G SRV MINUTES [facility] - 3 3 [facility] - 3 3 [facility] T OFFICE 81512 C[facility] GOMEZ OUTPATIEN 3 3 [facility] T VISIT ADULT & 15 PED MINUTES HOSPITAL [facility] - 3 3 [facility]PATIEN [facility] CISCO - 3 3 [facility] OFF[facility] 39955 [facility] OUTPATIEN 3 3 [facility] T VISIT ADULT & 25 PED MINUTES OFFICE 58016 [facility] OUTPATIEN 3 3 [facility] VISIT ADULT & 15 PED MINUTES [facility] [place] - 3 3 [facility] EMERGENC[facility] 31157 [facility]VER[facility]& THREAT FUN OFFICE 63292 [place] JENNIFER OUTPATIEN 3 3 JAL T VISIT NEUROSCIE 25 NCES CENT MINUTES OFFICE 52956 [facility] 3 3 JAL T NEW 45 NEUROSCIE MINUTES NCES CENT EMERGENCY 68537 [facility] 2 2 [facility] VISIT LOW/MODER SEVERITY [facility] - 2 2 [facility] 67114 [facility] 2 2 [facility] T VISIT ASSOCIATE ASSOCIATE 15 S PS S PS MINUTES [facility] [place] - 2 2 [facility] CISCO [facility] 2 2 [facility]IEN [facility] 88202 [facility] OUTPATI[facility] 2 2 [facility] T VISIT ASSOCIATE ASSOCIATE 15 S PS S PS MINUTES OFFICE 30622 [facility]PATI[facility] 2 2 [facility] T NEW 45 ASSOCIATE ASSOCIATE MINUTES S PS S PS OFFICE 67163 [facility]RET MADISON MADISON BRET OUTPATIEN 2 2 T VISIT CONSULTIN 25 G [facility] [place] - 2 2 [facility] EMERGENCY 25993 [place] 2 2 [facility] T VISIT HIGH/URGE NT SEVERITY EMERGENCY 52854 [facility] T VISIT LOW/MODER SEVERITY EMERGENCY 56128 [place] 2 2 [facility] T VISIT MODERATE SEVERITY [facility]OSP[facility] [place] - 2 2 [facility] EMERGENCY 48558 [facility] 2 2 [facility] 2001 T VISIT MODERATE SEVERITY [facility]OSPITAL [facility] - 2 2 [facility] CISCO - 2 2 [facility] H[facility]PITAL UNIVERSIT - 2 2 [facility] T OFFICE 27573 ELIANA ZARA OUTPATIEN 2 2 MEDICAL BOGDAN T NEW 30 SERV MINUTES [facility] OFFICE 43129 EL[facility]NA [facility] 2 2 MEDICAL T NEW 30 SERV MINUTES [facility] CISCO [facility] 2 2 [facility] - 2 2 [facility] [place] - 1 1 [facility] [place] - [address] [facility] CISCO - 1 1 [facility] [place] - [address] [facility] [place] - [address] [facility] CISCO - 1 1 [facility] OUTPATI[facility] INC T OFFICE 64251 ELIANA NICOLE OUTPATIEN 0 0 MEDICAL T VISIT SERV [facility] T OFFICE 06760 ELIANA KONG ANT OUTPATIEN 0 0 MEDICAL T NEW 45 SERV MINUTES [facility] UNIVERSIT - 9 9 Y [facility] UNIVERSIT - 9 9 Y [facility] T OFFICE 08027 ELIANA ESCOBAR OUTPATICLAUDIA 9 9 MEDICAL BRITNEY T NEW 30 SERV MINUTES [facility] OFFICE 76350 [facility] 9 9 [place] MARVIN Campuzano ION ORTHOPAED NEW/ESTAB ICS PLC PATIENT 60 MIN EMERGENCY 41875 [facility] 9 9 [facility] DEPARTMEN INC T VISIT LOW/MODER SEVERITY [facility]OSPITAL [facility] - 9 9 [facility] OUTPATIEN INC T EMERGENCY 02023 [facility] VALENTINO, 9 9 EMERG[facility]Y [facility] DEPARTMEN SERVICES T VISIT HIGH/URGE ASSOCIATE NT S [facility] CISCO - 9 9 [facility] OUTPATIEN INC T OFFICE 78017 CORDELIA STOREY OUTPATIEN 9 9 VERONICA MARTIN T VISIT 25 MINUTES OFFICE 51911 LOLI ENNIS OUTPATIEN 9 9 ALFRED SIMON T NEW 45 MINUTES [facility] - 9 9 [facility] INC T OFFICE 19073 ARIADNE RON OUTPATIEN 9 9 LAWRENCE Bae T NEW 30 MINUTES OFFICE 35545 LIZY FERRERA 9 9 [facility] SEDRICK Collins T VISIT ORTHOPAED 15 IC CTR MINUTES [facility] CISCO - 9 9 [facility] OUTPATIEN INC T EMERGENCY 63029 [facility] 9 9 [facility] DEPARTMEN INC T [facility]ISIT LIMITED/M [facility] C[facility]CO [facility] 9 9 [facility] OUTPATIEN INC T EMERGENCY 77461 [facility] 9 [facility] L[facility]MODER [facility] [id number] [facility] 8 8 [facility] VISIT HIGH/URGE NT SEVERITY
--- OUTSIDE RECORDS SUMMARY | 2017-02-05 10:21 | External Medical Summary Rpt ---
Author Author JOSE Cristobal, [employer] Organization [employer] Address Unknown Phone Unavailable
--- OUTSIDE RECORDS SUMMARY | 2017-02-05 10:21 | External Medical Summary Rpt ---
Demographics Preferred Language Luxembourgish Marital Status Unknown Yazidism Affiliation Unknown Race Unknown Ethnic Group Unknown Author Author , Organization [employer] Address Unknown Phone Unavailable Purpose Continuity of Care Document - through 2016 Immunization No patient found.
--- OUTSIDE RECORDS SUMMARY | 2017-02-05 10:21 | External Medical Summary Rpt ---
Demographics Preferred Language Macedonian Marital Status Unknown Hinduism Affiliation Unknown Race Unknown Ethnic Group Unknown Author Author , Organization [employer] Address Unknown Phone Unavailable Purpose Continuity of Care Document - through 2016 Immunization No patient found.
--- NOTE | 2017-02-05 10:46 | Emergency Room Report ---
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 N Clinical Suspician of Infection? N Mental Status: 1 - Regular (Normal Baseline) Sepsis Risk:Possible Sepsis Risk Have you (or family members/close friends) recently traveled outside the [place]? N If Yes, where/when: Have you had exposure to infectious disease within the past month? N TB? Other? Specify: Source patient, RN notes reviewed, family, RN/MD Exam Limitations no limitations Comment This is a 55-year-old lady sent over from [facility] for evaluation of her chronic low back pain. By the time the patient presented to the emergency room her pain moved already in both flanks and later on in her suprapubic area. Patient is denying any nausea or vomiting, diarrhea or fever. Patient is also denying any recent travel or exposure to sick contacts. ALLERGIES Coded Allergies: methadone (Severe, S-DIFF. BREATHING 08/03/16) morphine (Intermediate, I-RASH 08/03/16) amitriptyline (From ELAVIL) (Mild, 08/03/16) tizanidine (From ZANAFLEX) (NA-SEDATION 08/03/16) Home Medications Reported Medications Aspirin 81 MG PO DAILY Hydrochlorothiazide/Valsarta (Diovan Hct 12.5 Mg-160 Mg) 1 TAB PO DAILY Metoprolol Succinate Xl (Metoprolol ER 50MG) 50 MG PO DAILY Gabapentin (Gabapentin 600MG) 1,200 MG PO Q8 #180 Albuterol Sulfate (Albuterol Sulfate 0.5 Ml) 3 ML IH QIDP PRN SHORTNESS OF BREATH #270 Amlodipine Besylate (Amlodipine) 10 MG PO DAILY Duloxetine Hcl (Duloxetine 30MG Capsule) 60 MG PO DAILY Temazepam (Temazepam 30MG) 30 MG PO QHS Linaclotide (Linzess 145MCG) 145 MCG PO DAILY #30 History Medical History General CAD? No Angina: No SC: No Hypertension? Yes Hyperlipidemia? Yes CHF? No DVT? No PE? No COPD? No Asthma? Yes Anemia? No GERD? No Gastric ulcers? No GI Bleed? No Hernia? No Thyroid Problems? No Hypothyroidism? No CVA? No Seizures? No Diabetes? No Renal Insuffiency? No End Stage Renal Disease? No UTI? No Stones? No BPH? No GB Disease: No Nephritic Syndrome? No Asplenia? No Hepatitis? No Sickle Cell Disease? No Arthritis? Yes Migraines? No Cataracts? No Glaucoma? No MRSA? No HIV? No TB? No Anxiety? No Depression? No Cancer? No More? Yes Additional hx: CHRONIC LOWER BACK PAIN FIBROMYALGIA Immunization Hx DT/Tetanus 1-4 Years Ago Flu 2011-FSN Pneumonia Refuses Surgical Hx Previous Surgery?Y RIGHT & LEFTR WRIST HYSTERECTOMY SPINAL CORD STIMULATOR GASTRIC SURGERY 2010 GALL BLADDER BLADDER LIFT UTERUS REPAIRED RT. 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 Months Or More Family History Family Hx Diabetes Yes CAD Yes Hypertension Yes Hyperlipidemia No Cancer Yes TB No Social History Smoking Hx Smoker: Light Tobacco Smoker Tobacco: Yes Type Cigarettes Packs/day < 1 Pack Alcohol Alcohol: No Review of Systems All Other Systems Reviewed and Negative Musculoskeletal back pain Physical Exam Vital Signs Vital Signs Date Time Temp Pulse Resp B/P Pulse O2 O2 Flow FiO2 Ox Delivery Rate 02/05 1421 98.3 62 20 154/78 98 06/05 1309 97.6 66 18 163/67 97 / 1040 20 06/05 1025 98.3 93 20 156/107 97 06/05 1002 98.3 93 20 156/107 97 General Appearance normal appearance, WD/WN, moderate distress Respiratory Status Yes: trachea midline, chest symmetrical, non tender chest. No: respiratory distress. Lung Sounds bilateral: normal breath sounds, lungs clear. 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 No Comment Patient informed of the findings of the CAT scan including the nodule in the LEFT lung which will require additional outpatient follow-up, in order to assure stability. Patient started follow-up with PCP, will send her home with John. Patient appears stable medical condition at this time, clinically improving, minimally symptomatic. Results/Orders Laboratory Tests 02/05/17 1200: Sodium 139, Potassium 4.2, Chloride 101, Carbon Dioxide 30, BUN 17, Creatinine 1.0, Estimated Creat Clear 90, Estimated GFR (MDRD) 58 L, Glucose 78, Calcium 9.2, Total Bilirubin 0.2, AST 16, ALT 34, Alkaline Phosphatase 116, Total Protein 7.7, Albumin 3.8, Globulin 3.9 H, Albumin/Globulin Ratio 1.0 L, Amylase 42, Lipase 377, WBC 7.3, RBC 4.75, Hgb 13.7, Hct 42.5, MCV 89.4, RDW 13.8, Plt Count 279, MPV 5.9 L, Gran % 60.3, Gran # 4.4, Lymphocytes % 31.5, Monocytes % 5.3, Eosinophils % 2.2, Basophils % 0.7, Lymphocytes # 2.3, Monocytes # 0.4, Eosinophils # 0.2, Basophils # 0.1, PUBS MCHC 32.1, MCH 28.7 02/05/17 1010: Urine Color YELLOW, Urine Appearance Clear, Urine pH 5.5, Ur Specific Amber 1.005, Urine Protein NEGATIVE, Urine Ketones NEGATIVE, Urine Blood NEGATIVE, Urine Nitrate NEGATIVE, Urine Bilirubin NEGATIVE, Urine Urobilinogen 0.2, Ur Leukocyte Esterase NEGATIVE, Urine Glucose NEGATIVE Current Medication Orders Sig/Anita Start time Last Medication Dose Route Stop Time Status Admin Sodium Chloride 10 ML PRN PRN 02/05 1245 DCD 02/05 IV 02/06 1235 1237 Ondansetron HCl 0 .STK-MED ONE 02/05 1233 DC .ROUTE Morphine Sulfate 4 MG ONCE ONE 02/05 1115 CANr IV 02/05 1116 Ondansetron HCl 4 MG ONCE ONE 02/05 1115 DC 02/05 IV 02/05 1116 1235 Ketorolac 0 .STK-MED ONE 02/05 1036 DC Tromethamine .ROUTE Ondansetron HCl 0 .STK-MED ONE 02/05 1035 DC .ROUTE Ketorolac 60 MG ONCE ONE 02/05 1030 DC 02/05 Tromethamine IM 02/05 1031 1040 Ondansetron HCl 4 MG ONCE ONE 02/05 1030 DC 02/05 IM 02/05 1031 1040 Orders Procedure Date/time Status DIET-NOTHING BY MOUTH 02/05 D Active IV SALINE LOCK 02/05 1236 Active LIPASE 02/05 1105 Complete CBC WITH AUTO DIFF 02/05 1105 Complete CHEM 12 PROFILE 02/05 1105 Complete AMYLASE 02/[address] ABD/PELVIS REQ 02/05 1104 Complete UTC URINE DIPSTICK 02/05 1010 Complete XRAY/CT/US XRAY/CT/US CT abdomen, pelvis CT interpretation by discussed w/radiologist CT Results see radiologist's report Departure Departure Time of Disposition 1408 Disposition DC Home or Self Care(routine) Clinical Impression Primary Impression: Acute exacerbation of chronic low back pain Secondary Impressions: Constipation Qualifiers: Constipation type: slow transit constipation Qualified Code: K59.01 - Slow transit constipation Nodule of left lung Condition STABLE Referrals Sal CAIN,Koko (Family): [facility] Patient Instructions DI for Constipation, Managing Chronic Low Back Pain Additional Instructions Please follow-up with Dr. Huang if no better within the next 2 days. 1. for your low back back pain, please find attached a prescription for Etodolac 2. for your constipation, try enemas 3. for your left lower lung mass - follow up with Dr Huang Discharge Counseling Counseled pt/family regarding diagnosis, test results, medications/RX, home care, follow up needs Comment Please follow-up with Dr. Huang if no better within the next 2 days. 1. for your low back back pain, please find attached a prescription for Etodolac 2. for your constipation, try enemas 3. for your left lower lung mass - follow up with Dr Huang Prescriptions Current Visit Scripts Etodolac 200 MG PO QIDP PRN apin #28 [facility] ED Critical Care Critical Care No at 2323
[2017-02-05 12:44] LABS: HEMOGLOBIN 13.7 g/dL (12.2-16.2); LYMPH # 2.3 K/mm3 (0.7-4.5); LYMPH % 31.5 % (10-50.0)
[2017-02-05] MEDS ORDERED: ETODOLAC200 MG PO (14:15)
[2017-02-05 14:21] VITALS: BP 154/78
--- NOTE | 2017-02-05 17:02 | RADIOLOGY REPORT PS360 ---
CT ABD PELVIS W/O CONTRAST CLINICAL INDICATION: Right and left-sided lower abdominal pain ABD PAIN ORDERING PHYSICIAN: Yosef Davis MD PATIENT AGE: 56 years COMPARISON: 04/02/2016 TECHNIQUE: Axial images obtained with sagittal and coronal reformats. PROCEDURE: Oral Contrast: None IV Contrast: None . FINDINGS: There is a 5 mm subpleural nodular opacity left lung base laterally. Nonspecific. The liver, spleen, adrenal glands, and pancreas have an unremarkable unenhanced CT appearance. There has been a prior cholecystectomy. No biliary dilatation. Tiny umbilical hernia containing fat. No evidence of appendicitis or diverticulitis. Prior hysterectomy. No intestinal obstruction or free air. No evidence of abscess or other acute anomalies. Moderate amount retained colonic feces Imaging changes lumbar spine. Probable hemangioma T8 vertebral body. IMPRESSION: 1. No acute intra-abdominal or pelvic pathology. 2. Constipation. 3. Nonspecific 5 mm left lower lobe pulmonary nodule. Dedicated chest CT may be of further value
== END 2017-02-05 14:22 | disposition home or self-care (01) ==
LOC: UTC 09:51 → ER 09:58 → UTC 09:58 → ER 14:22
PROVIDERS: Emergency Medicine; Nurse Practitioner Family
DX: M54.5 Low back pain (principal); K59.01 Slow transit constipation; I10 Essential (primary) hypertension; R91.1 Solitary pulmonary nodule
CPT/HCPCS: J2405

== ENCOUNTER → 2017-05-29 | Outpatient (CLI) | payer MEDICARE, MEDICAID ==
[~2017-05-29] MED LIST changes: +BENTYL10 M1 PO; +ETODOLAC200 MG PO; +LINZESS145 MCG PO
--- NOTE | 2017-05-29 13:17 | RADIOLOGY REPORT PS360 ---
KUB (SINGLE VIEW) HISTORY: BLADDER PROLAPSE ORDERING PHYSICIAN: Mayte Arguello APRN PATIENT AGE: 57 years COMPARISON: 05/25/2009 FINDINGS: The bowel gas pattern is unremarkable. No obvious obstruction.. No abnormal calcifications are evident. No obvious renal or ureteral calculi.. No acute bony anomalies evident. Right upper quadrant surgical clip. Right-sided pelvic phlebolith IMPRESSION: Negative KUB, no acute finding
== END ==
LOC: RAD 11:38
DX: N81.10 Cystocele, unspecified (principal)